=== PATIENT | male | born 1940 | race Caucasian/White ===

== ENCOUNTER 2018-06-16 11:23 | Emergency (ER) | payer MEDICARE, BC ==
[~2018-06-16] VITALS: Ht 185.4 cm; Wt 81.6 kg
[~2018-06-16 11:23] MED LIST changes: -RIVA15TA PO
[2018-06-16 12:50] LABS: BASO # 0.1 x10^3/uL (0.0-0.2); BASO % 1 % (0-3); EOS # 0.4 x10^3/uL (0.0-0.7); EOS % 5 % (0-3); HEMATOCRIT 28.9 % (39.0-53.0); HEMOGLOBIN 10.1 g/dL (13.0-17.5); LYMPH # 2.1 x10^3/uL (1.0-4.8); LYMPH % 24 % (24-48); MEAN CORPUSCULAR HEMOGLOBIN 35 pg (25-35); MEAN CORPUSCULAR HGB CONC 35 g/dL (31-37); MEAN CORPUSCULAR VOLUME 102 fL (79-100); MONO # 0.5 x10^3/uL (0.0-1.1); MONO % 6 % (0-9); NEUT # 5.5 x10^3uL (1.8-7.7); NEUT % 64 % (31-73); PLATELET COUNT 118 x10^3/uL (140-400); RED BLOOD COUNT 2.85 x10^6/uL (4.30-5.70); RED CELL DISTRIBUTION WIDTH 19.5 % (11.5-14.5); WHITE BLOOD COUNT 8.6 x10^3/uL (4.0-11.0)
--- NOTE | 2018-06-16 13:02 | PHYS DOC ---
Past Medical History Past Medical History: Cancer, Diabetes-Type II Past Surgical History: No Surgical History Alcohol Use: None Drug Use: None Adult General Chief Complaint Chief Complaint: LOWER EXTREMITY SWELLING HPI HPI Patient is a 77 year old male with a history of diabetes type 2, stomach cancer , who presents today stating he was diagnosed with a DVT a couple minutes ago. Patient states he noted increased swelling to his right lower extremity for a couple days, he states he called his oncologist, he states they sent him to have an ultrasound today, he states after the ultrasound he was informed he has a blood clot in the right lower extremity and was sent to the ED. Patient denies any chest pain or shortness of breath, denies any recent hospitalization , denies any recent surgical procedures, denies any present for denies any fever , denies any recent long air travel. He states his last chemotherapy treatment was last week. Review of Systems Review of Systems Constitutional: Denies fever or chills [] Eyes: Denies change in visual acuity, redness, or eye pain [] HENT: Denies nasal congestion or sore throat [] Respiratory: Denies cough or shortness of breath [] Cardiovascular: No additional information not addressed in HPI [] GI: Denies abdominal pain, nausea, vomiting, bloody stools or diarrhea [] : Denies dysuria or hematuria [] Musculoskeletal: DVT right lower extremity. Integument: Denies rash or skin lesions [] Neurologic: Denies headache, focal weakness or sensory changes [] All other systems were reviewed and found to be within normal limits, except as documented in this note. Current Medications Current Medications Current Medications Medications (Trade) Dose Ordered Sig/[facility] Start Time Stop Time Status Last Admin Dose Admin Enoxaparin Sodium (Lovenox 80mg Syringe) 80 mg Q12HR 06/16/18 13:30 Enoxaparin Sodium (Lovenox Per Pharmacy Treatment Dosing) 1 each PRN DAILY PRN 06/16/18 13:30 Allergies Allergies Allergies Coded Allergies Type Severity Reaction Last Updated Verified No Known Drug Allergies 11/09/17 No Physical Exam Physical Exam Constitutional: Well developed, well nourished, no acute distress, non-toxic appearance. [] HENT: Normocephalic, atraumatic, bilateral external ears normal, oropharynx moist, no oral exudates, nose normal. [] Eyes: PERRLA, EOMI, conjunctiva normal, no discharge. [] Neck: Normal range of motion, no tenderness, supple, no stridor. [] Cardiovascular:Heart rate regular rhythm, no murmur [] Lungs & Thorax: Bilateral breath sounds clear to auscultation [] Abdomen: Bowel sounds normal, soft, no tenderness, no masses, no pulsatile masses. [] Skin: Warm, dry, no erythema, no rash. [] Back: No tenderness, no CVA tenderness. [] Extremities: Right lower extremity around the Calf appears bigger than the left lower extremity. There is trace redness over the chin. Positive Homans sign to the right lower extremity. +2 right pedal pulse. Full range of motion to the right lower extremity. Sensation intact to the right lower extremity. Neurologic: Alert and oriented X 3, normal motor function, normal sensory function, no focal deficits noted. [] Psychologic: Affect normal, judgement normal, mood normal. [] Current Patient Data Vital Signs Vital Signs Date Time Temp Pulse Resp B/P (MAP) Pulse Ox O2 Delivery O2 Flow Rate FiO2 06/16/18 12:26 98.1 73 16 177/77 (110) 99 Room Air 99.0 98.1 Lab Values Laboratory Tests Test 06/16/18 12:42 White Blood Count 8.6 x10^3/uL (4.0-11.0) Red Blood Count 2.85 x10^6/uL (4.30-5.70) L Hemoglobin 10.1 g/dL (13.0-17.5) L Hematocrit 28.9 % (39.0-53.0) L Mean Corpuscular Volume 102 fL (79-100) H Mean Corpuscular Hemoglobin 35 pg (25-35) Mean Corpuscular Hemoglobin Concent 35 g/dL (31-37) Red Cell Distribution Width 19.5 % (11.5-14.5) H Platelet Count 118 x10^3/uL (140-400) L Neutrophils (%) (Auto) 64 % (31-73) Lymphocytes (%) (Auto) 24 % (24-48) Monocytes (%) (Auto) 6 % (0-9) Eosinophils (%) (Auto) 5 % (0-3) H Basophils (%) (Auto) 1 % (0-3) Neutrophils # (Auto) 5.5 x10^3uL (1.8-7.7) Lymphocytes # (Auto) 2.1 x10^3/uL (1.0-4.8) Monocytes # (Auto) 0.5 x10^3/uL (0.0-1.1) Eosinophils # (Auto) 0.4 x10^3/uL (0.0-0.7) Basophils # (Auto) 0.1 x10^3/uL (0.0-0.2) Sodium Level 138 mmol/L (136-145) Potassium Level 4.2 mmol/L (3.5-5.1) Chloride Level 101 mmol/L (98-107) Carbon Dioxide Level 25 mmol/L (21-32) Anion Gap 12 (6-14) Blood Urea Nitrogen 26 mg/dL (8-26) Creatinine 0.9 mg/dL (0.7-1.3) Estimated GFR (Cockcroft-Gault) 82.0 Glucose Level 138 mg/dL (70-99) H Calcium Level 9.2 mg/dL (8.5-10.1) C-Reactive Protein, Quantitative 9.9 mg/L (0-3.3) H Laboratory Tests 06/16/18 12:42 Laboratory Tests 06/16/18 12:42 EKG EKG [] Radiology/Procedures Radiology/Procedures []PROCEDURE: VENOUS LOWER EXTREMITY RIGHT Right lower extremity venous doppler ultrasound History: Right leg swelling, on chemotherapy Comparison: None Findings: Multiple grayscale, color, and duplex spectral analysis sonographic images were acquired of the right lower extremity veins to evaluate for the presence of DVT. There is abnormal internal echogenicity extending from the right common femoral vein to the level of the calf veins, some color flow present. Greater saphenous vein is patent. Impression: 1. There is nonocclusive thrombus extending from the common femoral to the calf veins. Attempts were made to contact nurse for the ordering physician unsuccessfully, critical results to be called by the technologist to the office of ordering physician. Electronically signed by: Slava Jackson MD (06/16/2018 11:07 AM) [id number] DICTATED and SIGNED BY: SLAVA JACKSON MD DATE: 06/16/18 1040 Course & Med Decision Making Course & Med Decision Making Pertinent Labs and Imaging studies reviewed. (See chart for details) This is a 77-year-old male patient with history of stomach cancer currently on chemotherapy who presents today stating he was diagnosed with a DVT a few minutes ago. He states he has had right lower extremity swelling for couple days. No known injury. Outpatient venous Doppler interpreted by radiologist was noted for a nonocclusive thrombus extending from common femoral to the calf veins. CBC no acute findings, BMP with normal renal function. Patient is given Lovenox IM in the ED. Patient was discharged with Xaleto two week dose provided. Instructed to follow up with the PCP for more medication to cover three weeks. Dr. Chris was consulted with this case. Dragon Disclaimer Dragon Disclaimer This electronic medical record was generated, in whole or in part, using a voice recognition dictation system. Departure Departure Impression: Primary Impression: Right leg DVT Disposition: 01 HOME, SELF-CARE Condition: STABLE Referrals: FELICE GRECO Jr, MD (PCP) Call his office today and set up a follow-up appointment Patient Instructions: Deep Vein Thrombosis Additional Instructions: You have a blood clot in the right lower extremity. We put you on a blood thinner. Please contact your primary care doctor today and set up an appointment to follow-up so that they can give you more medication. Please come back to the emergency room at any point you have worsening symptoms including but not limited to chest pain/shortness of breath. Scripts Rivaroxaban (XARELTO) 15 Mg Tablet 15 MG PO BID, #28 TAB Prov: TRAVIS GAMBLE APRN 06/16/18 Problem Qualifiers Primary Impression: Right leg DVT Affected thrombotic vein of extremity: femoral Chronicity: acute Qualified Codes: I82.411 - Acute embolism and thrombosis of right femoral vein TRAVIS GAMBLE APRN Jun 16, 2018 13:02
[2018-06-16 13:04] LABS: CALCIUM 9.2 mg/dL (8.5-10.1); CREATININE 0.9 mg/dL (0.7-1.3); POTASSIUM 4.2 mmol/L (3.5-5.1)
[2018-06-16 13:07] LABS: C-REACTIVE PROTEIN 9.9 mg/L (0-3.3)
[2018-06-16 13:41] VITALS: BP 152/67
[2018-06-16] MEDS ORDERED: RIVA15TA PO (13:51)
== END 2018-06-16 14:10 | disposition home or self-care (01) ==
LOC: ER 11:23
DX: I82.411 Acute embolism and thrombosis of right femoral vein (principal); E11.9 Type 2 diabetes mellitus without complications; Z85.028 Personal history of other malignant neoplasm of stomach; Z51.11 Encounter for antineoplastic chemotherapy
CPT/HCPCS: 36415; 80048; 85025; 85651; 86140; 96372; 99285; J1650; 99284

== ENCOUNTER → 2018-06-16 | Outpatient (CLI) | payer MEDICARE, BC ==
[~2018-06-16] MED LIST: CRESTOR5 MG PO; METF500T16 PO; OMEP20TA63 PO; RANI300T3 PO; RIVA15TA PO
--- NOTE | 2018-06-16 11:10 | RAD ---
Right lower extremity venous doppler ultrasound History: Right leg swelling, on chemotherapy Comparison: None Findings: Multiple grayscale, color, and duplex spectral analysis sonographic images were acquired of the right lower extremity veins to evaluate for the presence of DVT. There is abnormal internal echogenicity extending from the right common femoral vein to the level of the calf veins, some color flow present. Greater saphenous vein is patent. Impression: 1. There is nonocclusive thrombus extending from the common femoral to the calf veins. Attempts were made to contact nurse for the ordering physician unsuccessfully, critical results to be called by the technologist to the office of ordering physician. Electronically signed by: Evangelista Arellano MD (06/16/2018 11:07 AM) [email or web address]
== END | disposition home or self-care (01) ==
LOC: US 09:08
PROVIDERS: ATTEND Internal Medicine Hematology & Oncology
DX: I82.890 Acute embolism and thrombosis of other specified veins (principal); E11.9 Type 2 diabetes mellitus without complications; E78.5 Hyperlipidemia, unspecified; Z85.01 Personal history of malignant neoplasm of esophagus
CPT/HCPCS: 93971

== ENCOUNTER 2019-07-05 20:44 | Inpatient (IN) | payer MEDICARE, BC ==
[~2019-07-05] VITALS: Ht 185.4 cm; Wt 91.6 kg
[~2019-07-05 20:44] MED LIST changes: +RIVA15TA PO
[2019-07-05 23:15] VITALS: BP 124/81
[2019-07-05 23:30] VITALS: BP 66/49
--- NOTE | 2019-07-05 23:30 | NUR ---
Patient arrived to ICU room 105 from [facility] via EMS. Patient arrived alert and oriented, answers questions appropriately. No IVFs and on room air. Denies pain but reports dizziness. Unsteady and difficulty urinating. Fell back to the bed and reported increased dizziness. Family at bedside. No orders in place. Will continue to monitor.
[2019-07-05 23:45] VITALS: BP 90/51
[2019-07-05] MEDS: PANTOPRAZOLE SODIUM IV DRIP 80 MG in IV NORMAL SALINE 100ML 100 ML IV SCH (23:54)
--- NOTE | 2019-07-05 23:59 | NUR ---
Patient had nausea and dark red emesis. Dr. Perez paged but no call back. Dr. Barajas notified orders received for protonix and consult to Dr. Antunez. Dr. Michael with call back and advised to hold xerelto and Dr. Antunez will be in to see patient in the am. Will continiue to monitor.
[2019-07-06] VITALS (45 sets, daily range): BP systolic 61–140; BP diastolic 34–81
[2019-07-06 00:29] LABS: BASO # 0.1 x10^3/uL (0.0-0.2); BASO % 0 % (0-3); EOS % 0 % (0-3); HEMATOCRIT 23.5 % (39.0-53.0); HEMOGLOBIN 7.8 g/dL (13.0-17.5); LYMPH % 22 % (24-48); MEAN CORPUSCULAR HEMOGLOBIN 33 pg (25-35); MEAN CORPUSCULAR HGB CONC 33 g/dL (31-37); MEAN CORPUSCULAR VOLUME 99 fL (79-100); MONO # 1.8 x10^3/uL (0.0-1.1); MONO % 10 % (0-9); NEUT # 12.3 x10^3/uL (1.8-7.7); NEUT % 68 % (31-73); PLATELET COUNT 135 x10^3/uL (140-400); RED BLOOD COUNT 2.39 x10^6/uL (4.30-5.70); WHITE BLOOD COUNT 18.1 x10^3/uL (4.0-11.0)
[2019-07-06 00:41] LABS: ALBUMIN 2.4 g/dL (3.4-5.0); ALBUMIN/GLOBULIN RATIO 1.1 (1.0-1.7); CALCIUM 7.9 mg/dL (8.5-10.1); CREATININE 1.4 mg/dL (0.7-1.3); GFR 49.1; POTASSIUM 4.5 mmol/L (3.5-5.1); TOTAL BILIRUBIN 0.7 mg/dL (0.2-1.0); TOTAL PROTEIN 4.6 g/dL (6.4-8.2)
[2019-07-06] MEDS ORDERED: fentaNYL PF VIAL 100 MCG/2 ML VIAL IVP PRN (01:00)
--- NOTE | 2019-07-06 01:00 | NUR ---
Dr. Chavira called due to no call back from [facility]. Update of patient condition. Notified of labs. Admit orders received. Patient began to be more restless and increased WOB. Spoke with family and advised of patient more unstable at this point. Patient's family states he had a DNR in place but is a full code at this time. RT called for blood gases. Patient restless with increased WOB, skin cool, hilliard and clammy. While attempting to reposition patient, agonal respirations. Attempting to BVM but difficult due to patient restlessness. Code Blue respiratory called.
[2019-07-06] MEDS ORDERED: MIDAZOLAM HCL/PF 5 MG/5 ML VIAL. ONE (01:19)
[2019-07-06] MEDS ORDERED: ETOMIDATE 20 MG/10 ML VIAL. IV ONE (01:19)
[2019-07-06] MEDS ORDERED: VECURONIUM BOLUS 10 MG VIAL. IV ONE (01:19)
[2019-07-06 01:33] LABS: BASE EXCESS ABG -29 mmol/L (-3-3); HCO3 ABG 6 mmol/L (21-28); PCO2 ABG 51 mmHg (35-46); PO2 ABG 290 mmHg (65-108); SAT O2 ABG 99 % (92-99)
[2019-07-06 01:44] LABS: BASE EXCESS ABG -27 mmol/L (-3-3); HCO3 ABG 6 mmol/L (21-28); PCO2 ABG 46 mmHg (35-46); PO2 ABG 316 mmHg (65-108); SAT O2 ABG 99 % (92-99)
[2019-07-06 01:51] LABS: RED BLOOD COUNT 1.88 x10^6/uL (4.30-5.70); RED CELL DISTRIBUTION WIDTH 18.1 % (11.5-14.5); WHITE BLOOD COUNT 20.5 x10^3/uL (4.0-11.0)
[2019-07-06 01:59] LABS: HEMATOCRIT 19.6 % (39.0-53.0); HEMOGLOBIN 6.2 g/dL (13.0-17.5)
--- NOTE | 2019-07-06 02:00 | NUR ---
Patient intubated. Blood gases critical and called to Dr. Bolaños. Orders received along with vent changes. Will continue to monitor.
[2019-07-06 02:13] LABS: FIO2 ABG 100
[2019-07-06 02:14] LABS: FIO2 ABG 100
[2019-07-06] MEDS: SODIUM BICARBONATE VIAL 100 MEQ in IV DEXTROSE 5% 1,000 ML IV SCH ×2 (02:22→17:55)
[2019-07-06] MEDS ORDERED: SODIUM BICARB ADULT 8.4% 50 MEQ/50 ML DISP.SYRIN. IV ONE (02:30)
[2019-07-06] MEDS: MIDAZOLAM 100mg/100ml NS BAG 100 ML IV PRN ×2 (02:37→15:06)
--- NOTE | 2019-07-06 02:52 | RAD ---
Study: 1. PORTABLE CHEST 1V 2. KUB Indication: Support device placement Comparison: Chest radiograph 07/05/2019 at 1759 hours. Findings: Endotracheal tube placement with the tip terminating just above the level of the clavicles at approximately 7 cm from the brigid. Enteric tube tip and sidehole are within the stomach. Unchanged positioning of a left chest wall Port-A-Cath. Slight progression of basilar volume loss, particularly on the left. No pneumothorax. Biapical scarring. The stomach is distended. No free air seen under the diaphragm. Impression: 1. Endotracheal tube is in place with the tip terminating just above the level of the clavicles and approximately 7 cm above the brigid. 2. Enteric tube tip and sidehole are within the stomach. 3. No newly seen acute abnormality of the chest. There has been some progression of mild basilar volume loss, particularly on the left. 4. No free air seen under the diaphragm. Gastric distention noted. Electronically signed by: LISA WHITE MD (07/06/2019 2:49 AM) [facility]
[2019-07-06] MEDS ORDERED: PHENYLEPHRINE INJ 20 MG in IV NORMAL SALINE 250ML 250 ML IV PRN (03:15)
[2019-07-06 05:17] LABS: % BANDS 28 % (0-9); % LYMPHS 21 % (24-48); % MONOS 10 % (0-10); % MYELOS 1 % (0-0); % SEGS 40 % (35-66); PLT ESTIMATE DECREASED (ADEQUATE)
[2019-07-06 05:18] LABS: POLYCHROMASIA SLIGHT; TOXIC GRANULATION SLIGHT
[2019-07-06] MEDS: NOREPINEPHRIN 8MG/250ML PREMIX 250 ML IV PRN ×2 (05:35→09:08)
[2019-07-06] MEDS ORDERED: RIVA20TA2 PO (07:41)
[2019-07-06 07:50] LABS: BASO # 0.1 x10^3/uL (0.0-0.2); BASO % 1 % (0-3); EOS % 0 % (0-3); HEMATOCRIT 31.1 % (39.0-53.0); LYMPH # 1.5 x10^3/uL (1.0-4.8); LYMPH % 10 % (24-48); MEAN CORPUSCULAR HEMOGLOBIN 32 pg (25-35); MEAN CORPUSCULAR HGB CONC 34 g/dL (31-37); MONO # 0.5 x10^3/uL (0.0-1.1); MONO % 3 % (0-9); NEUT # 12.8 x10^3/uL (1.8-7.7); NEUT % 86 % (31-73); PLATELET COUNT 116 x10^3/uL (140-400); RED BLOOD COUNT 3.37 x10^6/uL (4.30-5.70); RED CELL DISTRIBUTION WIDTH 18.2 % (11.5-14.5); WHITE BLOOD COUNT 14.9 x10^3/uL (4.0-11.0)
[2019-07-06 07:56] LABS: HEMOGLOBIN 10.6 g/dL (13.0-17.5); MEAN CORPUSCULAR VOLUME 92 fL (79-100)
[2019-07-06 08:00] LABS: CALCIUM 7.4 mg/dL (8.5-10.1); CREATININE 1.8 mg/dL (0.7-1.3); GFR 36.8; POTASSIUM 4.1 mmol/L (3.5-5.1)
[2019-07-06 08:16] LABS: BASE EXCESS ABG -11 mmol/L (-3-3); HCO3 ABG 13 mmol/L (21-28); PCO2 ABG 24 mmHg (35-46); PO2 ABG 198 mmHg (65-108); SAT O2 ABG 99 % (92-99)
[2019-07-06 08:18] LABS: FIO2 ABG 100
[2019-07-06] MEDS: PANTOPRAZOLE SODIUM IV DRIP 80 MG in IV NORMAL SALINE 100ML 100 ML IV SCH ×2 (09:07→20:15)
[2019-07-06] MEDS ORDERED: PHYTONADIONE 10 MG/ML AMPUL. SQ ONE (09:30)
--- NOTE | 2019-07-06 10:06 | PDOC2 ---
CONSULT Date of Consult Date of Consult DATE: 07/06/19 TIME: 10:03 Reason for Consult Reason for Consult: Hematemesis/hx adenocarcinoma of cardia/diatal esophagus Current Medications Current Medications Current Medications Pantoprazole Sodium 80 mg/ Sodium Chloride 100 ml @ 10 mls/hr Q10H IV Last administered on 07/06/19at 09:07; Start 07/06/19 at 00:00 Lorazepam (Ativan Inj) 2 mg PRN Q4HRS PRN IVP ANXIETY / AGITATION Last administered on 07/06/19at 00:59; Start 07/06/19 at 01:00 Fentanyl Citrate (Fentanyl 2ml Vial) 50 mcg PRN Q2HR PRN IVP SEVERE PAIN 7-10; Start 07/06/19 at 01:00 Norepinephrine Bitartrate 250 ml @ 16.159 mls/ hr CONT PRN IV SEE I/O RECORD Last administered on 07/06/19at 09:08; Start 07/06/19 at 01:00 Etomidate (Amidate) 20 mg STK-MED ONCE IV ; Start 07/06/19 at 01:19; Stop 07/06/19 at 01:19; Status DC Vecuronium [place] (Norcuron Bolus) 10 mg STK-MED ONCE IV ; Start 07/06/19 at 01:19; Stop 07/06/19 at 01:19; Status DC Midazolam HCl (Versed) 5 mg STK-MED ONCE .ROUTE ; Start 07/06/19 at 01:19; Stop 07/06/19 at 01:19; Status DC Midazolam HCl 100 ml @ 5 mls/hr CONT PRN IV SEE I/O RECORD Last administered on 07/06/19at 02:37; Start 07/06/19 at 01:30 Sodium Bicarbonate (Sodium Bicarb Adult 8.4% Syr) 100 meq 1X ONCE IV Last administered on 07/06/19at 02:22; Start 07/06/19 at 02:30; Stop 07/06/19 at 02:31; Status DC Sodium Bicarbonate 100 meq/Dextrose 1,100 ml @ 75 mls/hr [id number] IV Last administered on 07/06/19at 02:22; Start 07/06/19 at 02:30 Phenylephrine HCl 20 mg/Sodium Chloride 252 ml @ 32.508 mls/ hr CONT PRN IV SEE I/O RECORD Last administered on 07/06/19at 03:30; Start 07/06/19 at 03:15 Phytonadione (Vitamin K Ampule) 10 mg 1X ONCE SQ Last administered on 07/06/19at 09:49; Start 07/06/19 at 09:30; Stop 07/06/19 at 09:31; Status DC Active Scripts Active Reported Xarelto (Rivaroxaban) 20 Mg Tablet 20 Mg PO DAILYWSUP Zantac (Ranitidine Hcl) 300 Mg Tablet 300 Mg PO DAILY Crestor (Rosuvastatin Calcium) 5 Mg Tablet 5 Mg PO HS Metformin Hcl 500 Mg Tablet 500 Mg PO BIDWMEALS Prilosec Otc (Omeprazole Magnesium) 20 Mg Tablet.dr 20 Mg PO DAILY Allergies Allergies: Coded Allergies: No Known Drug Allergies (Unverified , 11/09/17) Vitals VITALS Vital Signs Date Time Temp Pulse Resp B/P (MAP) Pulse Ox O2 Delivery O2 Flow Rate FiO2 07/06/19 09:00 122 30 137/69 (91) 100 Ventilator 07/06/19 08:00 98.4 98.4 07/06/19 01:10 15.0 Labs Labs Laboratory Tests Test 07/06/19 00:15 07/06/19 01:00 07/06/19 01:38 07/06/19 01:45 White Blood Count 18.1 x10^3/uL (4.0-11.0) 20.5 x10^3/uL (4.0-11.0) Red Blood Count 2.39 x10^6/uL (4.30-5.70) 1.88 x10^6/uL (4.30-5.70) Hemoglobin 7.8 g/dL (13.0-17.5) 6.2 g/dL (13.0-17.5) Hematocrit 23.5 % (39.0-53.0) 19.6 % (39.0-53.0) Mean Corpuscular Volume 99 fL (79-100) 104 fL (79-100) Mean Corpuscular Hemoglobin 33 pg (25-35) 33 pg (25-35) Mean Corpuscular Hemoglobin Concent 33 g/dL (31-37) 32 g/dL (31-37) Red Cell Distribution Width 17.0 % (11.5-14.5) 18.1 % (11.5-14.5) Platelet Count 135 x10^3/uL (140-400) 124 x10^3/uL (140-400) Neutrophils (%) (Auto) 68 % (31-73) Lymphocytes (%) (Auto) 22 % (24-48) Monocytes (%) (Auto) 10 % (0-9) Eosinophils (%) (Auto) 0 % (0-3) Basophils (%) (Auto) 0 % (0-3) Neutrophils # (Auto) 12.3 x10^3/uL (1.8-7.7) Lymphocytes # (Auto) 4.0 x10^3/uL (1.0-4.8) Monocytes # (Auto) 1.8 x10^3/uL (0.0-1.1) Eosinophils # (Auto) 0.0 x10^3/uL (0.0-0.7) Basophils # (Auto) 0.1 x10^3/uL (0.0-0.2) Segmented Neutrophils % 40 % (35-66) Band Neutrophils % 28 % (0-9) Lymphocytes % 21 % (24-48) Monocytes % 10 % (0-10) Myelocytes % 1 % (0-0) Toxic Granulation Slight Platelet Estimate Decreased (ADEQUATE) Polychromasia Slight Crenated Cell Present Prothrombin Time 22.0 SEC (11.7-14.0) Prothromb Time International Ratio 2.0 (0.8-1.1) Sodium Level 144 mmol/L (136-145) Potassium Level 4.5 mmol/L (3.5-5.1) Chloride Level 109 mmol/L (98-107) Carbon Dioxide Level 12 mmol/L (21-32) Anion Gap 23 (6-14) Blood Urea Nitrogen 43 mg/dL (8-26) Creatinine 1.4 mg/dL (0.7-1.3) Estimated GFR (Cockcroft-Gault) 49.1 BUN/Creatinine Ratio 31 (6-20) Glucose Level 381 mg/dL (70-99) Calcium Level 7.9 mg/dL (8.5-10.1) Total Bilirubin 0.7 mg/dL (0.2-1.0) Aspartate Amino Transf (AST/SGOT) 15 U/L (15-37) Alanine Aminotransferase (ALT/SGPT) 16 U/L (16-63) Alkaline Phosphatase 112 U/L (46-116) Total Protein 4.6 g/dL (6.4-8.2) Albumin 2.4 g/dL (3.4-5.0) Albumin/Globulin Ratio 1.1 (1.0-1.7) O2 Saturation 99 % (92-99) 99 % (92-99) Arterial Blood pH < 6.72 (7.35-7.45) 6.74 (7.35-7.45) Arterial Blood pCO2 at Patient Temp 51 mmHg (35-46) 46 mmHg (35-46) Arterial Blood pO2 at Patient Temp 290 mmHg (65-108) 316 mmHg (65-108) Arterial Blood HCO3 6 mmol/L (21-28) 6 mmol/L (21-28) Arterial Blood Base Excess -29 mmol/L (-3-3) -27 mmol/L (-3-3) FiO2 100 100 Test 07/06/19 07:35 07/06/19 08:00 White Blood Count 14.9 x10^3/uL (4.0-11.0) Red Blood Count 3.37 x10^6/uL (4.30-5.70) Hemoglobin 10.6 g/dL (13.0-17.5) Hematocrit 31.1 % (39.0-53.0) Mean Corpuscular Volume 92 fL (79-100) Mean Corpuscular Hemoglobin 32 pg (25-35) Mean Corpuscular Hemoglobin Concent 34 g/dL (31-37) Red Cell Distribution Width 18.2 % (11.5-14.5) Platelet Count 116 x10^3/uL (140-400) Neutrophils (%) (Auto) 86 % (31-73) Lymphocytes (%) (Auto) 10 % (24-48) Monocytes (%) (Auto) 3 % (0-9) Eosinophils (%) (Auto) 0 % (0-3) Basophils (%) (Auto) 1 % (0-3) Neutrophils # (Auto) 12.8 x10^3/uL (1.8-7.7) Lymphocytes # (Auto) 1.5 x10^3/uL (1.0-4.8) Monocytes # (Auto) 0.5 x10^3/uL (0.0-1.1) Eosinophils # (Auto) 0.0 x10^3/uL (0.0-0.7) Basophils # (Auto) 0.1 x10^3/uL (0.0-0.2) Sodium Level 145 mmol/L (136-145) Potassium Level 4.1 mmol/L (3.5-5.1) Chloride Level 112 mmol/L (98-107) Carbon Dioxide Level 19 mmol/L (21-32) Anion Gap 14 (6-14) Blood Urea Nitrogen 50 mg/dL (8-26) Creatinine 1.8 mg/dL (0.7-1.3) Estimated GFR (Cockcroft-Gault) 36.8 Glucose Level 356 mg/dL (70-99) Calcium Level 7.4 mg/dL (8.5-10.1) O2 Saturation 99 % (92-99) Arterial Blood pH 7.34 (7.35-7.45) Arterial Blood pCO2 at Patient Temp 24 mmHg (35-46) Arterial Blood pO2 at Patient Temp 198 mmHg (65-108) Arterial Blood HCO3 13 mmol/L (21-28) Arterial Blood Base Excess -11 mmol/L (-3-3) FiO2 100 Laboratory Tests Test 07/06/19 00:15 07/06/19 01:00 07/06/19 01:38 07/06/19 01:45 White Blood Count 18.1 x10^3/uL (4.0-11.0) 20.5 x10^3/uL (4.0-11.0) Red Blood Count 2.39 x10^6/uL (4.30-5.70) 1.88 x10^6/uL (4.30-5.70) Hemoglobin 7.8 g/dL (13.0-17.5) 6.2 g/dL (13.0-17.5) Hematocrit 23.5 % (39.0-53.0) 19.6 % (39.0-53.0) Mean Corpuscular Volume 99 fL (79-100) 104 fL (79-100) Mean Corpuscular Hemoglobin 33 pg (25-35) 33 pg (25-35) Mean Corpuscular Hemoglobin Concent 33 g/dL (31-37) 32 g/dL (31-37) Red Cell Distribution Width 17.0 % (11.5-14.5) 18.1 % (11.5-14.5) Platelet Count 135 x10^3/uL (140-400) 124 x10^3/uL (140-400) Neutrophils (%) (Auto) 68 % (31-73) Lymphocytes (%) (Auto) 22 % (24-48) Monocytes (%) (Auto) 10 % (0-9) Eosinophils (%) (Auto) 0 % (0-3) Basophils (%) (Auto) 0 % (0-3) Neutrophils # (Auto) 12.3 x10^3/uL (1.8-7.7) Lymphocytes # (Auto) 4.0 x10^3/uL (1.0-4.8) Monocytes # (Auto) 1.8 x10^3/uL (0.0-1.1) Eosinophils # (Auto) 0.0 x10^3/uL (0.0-0.7) Basophils # (Auto) 0.1 x10^3/uL (0.0-0.2) Segmented Neutrophils % 40 % (35-66) Band Neutrophils % 28 % (0-9) Lymphocytes % 21 % (24-48) Monocytes % 10 % (0-10) Myelocytes % 1 % (0-0) Toxic Granulation Slight Platelet Estimate Decreased (ADEQUATE) Polychromasia Slight Crenated Cell Present Prothrombin Time 22.0 SEC (11.7-14.0) Prothromb Time International Ratio 2.0 (0.8-1.1) Sodium Level 144 mmol/L (136-145) Potassium Level 4.5 mmol/L (3.5-5.1) Chloride Level 109 mmol/L (98-107) Carbon Dioxide Level 12 mmol/L (21-32) Anion Gap 23 (6-14) Blood Urea Nitrogen 43 mg/dL (8-26) Creatinine 1.4 mg/dL (0.7-1.3) Estimated GFR (Cockcroft-Gault) 49.1 BUN/Creatinine Ratio 31 (6-20) Glucose Level 381 mg/dL (70-99) Calcium Level 7.9 mg/dL (8.5-10.1) Total Bilirubin 0.7 mg/dL (0.2-1.0) Aspartate Amino Transf (AST/SGOT) 15 U/L (15-37) Alanine Aminotransferase (ALT/SGPT) 16 U/L (16-63) Alkaline Phosphatase 112 U/L (46-116) Total Protein 4.6 g/dL (6.4-8.2) Albumin 2.4 g/dL (3.4-5.0) Albumin/Globulin Ratio 1.1 (1.0-1.7) O2 Saturation 99 % (92-99) 99 % (92-99) Arterial Blood pH < 6.72 (7.35-7.45) 6.74 (7.35-7.45) Arterial Blood pCO2 at Patient Temp 51 mmHg (35-46) 46 mmHg (35-46) Arterial Blood pO2 at Patient Temp 290 mmHg (65-108) 316 mmHg (65-108) Arterial Blood HCO3 6 mmol/L (21-28) 6 mmol/L (21-28) Arterial Blood Base Excess -29 mmol/L (-3-3) -27 mmol/L (-3-3) FiO2 100 100 Test 07/06/19 07:35 07/06/19 08:00 White Blood Count 14.9 x10^3/uL (4.0-11.0) Red Blood Count 3.37 x10^6/uL (4.30-5.70) Hemoglobin 10.6 g/dL (13.0-17.5) Hematocrit 31.1 % (39.0-53.0) Mean Corpuscular Volume 92 fL (79-100) Mean Corpuscular Hemoglobin 32 pg (25-35) Mean Corpuscular Hemoglobin Concent 34 g/dL (31-37) Red Cell Distribution Width 18.2 % (11.5-14.5) Platelet Count 116 x10^3/uL (140-400) Neutrophils (%) (Auto) 86 % (31-73) Lymphocytes (%) (Auto) 10 % (24-48) Monocytes (%) (Auto) 3 % (0-9) Eosinophils (%) (Auto) 0 % (0-3) Basophils (%) (Auto) 1 % (0-3) Neutrophils # (Auto) 12.8 x10^3/uL (1.8-7.7) Lymphocytes # (Auto) 1.5 x10^3/uL (1.0-4.8) Monocytes # (Auto) 0.5 x10^3/uL (0.0-1.1) Eosinophils # (Auto) 0.0 x10^3/uL (0.0-0.7) Basophils # (Auto) 0.1 x10^3/uL (0.0-0.2) Sodium Level 145 mmol/L (136-145) Potassium Level 4.1 mmol/L (3.5-5.1) Chloride Level 112 mmol/L (98-107) Carbon Dioxide Level 19 mmol/L (21-32) Anion Gap 14 (6-14) Blood Urea Nitrogen 50 mg/dL (8-26) Creatinine 1.8 mg/dL (0.7-1.3) Estimated GFR (Cockcroft-Gault) 36.8 Glucose Level 356 mg/dL (70-99) Calcium Level 7.4 mg/dL (8.5-10.1) O2 Saturation 99 % (92-99) Arterial Blood pH 7.34 (7.35-7.45) Arterial Blood pCO2 at Patient Temp 24 mmHg (35-46) Arterial Blood pO2 at Patient Temp 198 mmHg (65-108) Arterial Blood HCO3 13 mmol/L (21-28) Arterial Blood Base Excess -11 mmol/L (-3-3) FiO2 100 Assessment/Plan Assessment/Plan Hematemesis- with advanced inoperable adeno-carcinoma. with anticoagulation s/p code Plan supportive therapy with reversal of anticoagulation oncology input regarding any additional palliative therapy as endoscopy with advanced cancer has no role in cessation of the bleeding consider palliative care consult for hospice Full note dictated ALFREDO VIDES MD Jul 06, 2019 10:06
[2019-07-06] MEDS ORDERED: DEXTROSE 50% 25 GM / 50ML DISP.SYRIN. IV PRN (10:45)
[2019-07-06] MEDS: INSULIN LISPRO 300 UNITS/3 ML VIAL. SQ SCH ×2 (11:37→18:02)
--- NOTE | 2019-07-06 11:39 | CONS ---
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 HISTORY OF PRESENT ILLNESS: The patient is a 78-year-old gentleman who presented with cough in 09/2017. He underwent upper endoscopy on 10/24/2017 that revealed malignant appearing lower esophageal stricture and mass. A partially obstructing circumferential ulcerated 5 x 4 cm mass was detected with stigmata of bleeding from the mass. 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 He underwent endoscopic ultrasound on 11/01/2017 that revealed a T3 N2 esophageal cancer. PET scan on 11/07/2017 revealed distal esophageal/GE junction mass with extension to the proximal stomach. He underwent laparoscopy and peritoneal biopsy on 11/28/2017. There was evidence of peritoneal tumor deposits. Biopsies confirmed metastatic adenocarcinoma. He was started on palliative chemotherapy with FOLFOX on 12/07/2017. He developed DVT of the right lower extremity on 06/16/2018 and hence he was started on anticoagulation with Xarelto and he has been on it since then. The patient fell in the hallway at home on 07/05/2019. His heard a big thumb and she found that the patient was on the floor and he had lost consciousness. EMS noted that the patient was repeating himself and was very diaphoretic. He was awake, but not oriented and he was taken to [facility]. He underwent a CT scan of the cervical spine and the head that did not reveal any metastasis or bleeding. He then developed hematemesis and he was transferred to [facility] and intubated. His last dose of Xarelto was on 07/05/2019, morning. He was noted to have severe anemia with a hemoglobin of 6.2 on 07/06/2019 and hemoglobin improved to 10.6 on 07/06/2019 with transfusion. The patient was evaluated by Gastroenterology, Dr. Jacinto Barajas, who recommended supportive care and to consider hospice and management of reversal of anticoagulation. Endoscopy has no role in helping with cessation of bleeding in a patient with advanced gastric cancer, per Dr. Barajas. PAST MEDICAL HISTORY: Arthritis, skin cancer, diabetes, and hypertension. FAMILY HISTORY: Mother had cancer. SOCIAL HISTORY: He is . He quit smoking in 1992. REVIEW OF SYSTEMS: A 12-point review of system was performed. Pertinent positives are mentioned in the history of present illness. Rest of the system review is negative. PHYSICAL EXAMINATION: GENERAL APPEARANCE: The patient is a 78-year-old gentleman who is well developed and nourished and in no acute cardiorespiratory distress. VITAL SIGNS: Blood pressure 115/61, temperature 98.4. HEENT: Atraumatic, normocephalic. EYES: No icterus. NECK: Supple. CHEST: Bilaterally symmetrical. HEART: S1, S2 normal. ABDOMEN: Soft, nontender. No organomegaly. CENTRAL NERVOUS SYSTEM: He is sedated. PSYCHOLOGIC: He is sedated. MUSCULOSKELETAL: No joint effusions. LYMPHATICS: No lymphadenopathy. LABORATORY DATA: On 07/06/2019; hemoglobin 6.2 and post-transfusion hemoglobin is 10.6, platelet count 116, creatinine 1.8 with a BUN of 50. Glucose 381, calcium 7.9, total bilirubin 0.7, alkaline phosphatase 112, total protein 4.6, albumin 2.4. IMPRESSION AND PLAN: 1. 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 HER-2/sue negative, EBV negative, PD-L1 negative, MMR stable. He was started on palliative chemotherapy with FOLFOX on 12/07/2017. He has been actively getting chemotherapy every 2 weeks. He has done well with chemotherapy with reasonably good response. His most recent chemotherapy was on 06/26/2019 which was cycle #33. His most recent PET scan was on 05/03/2019 which revealed mild tumor progression at the gastroesophageal junction. Unchanged mild ill-defined gastrohepatic soft tissue thickening and nodularity along the proximal lesser curvature of the stomach, compatible with tumor infiltration. He is now admitted with GI bleed and respiratory failure. I again explained to the patient and the patient's and daughter that he has stage 4 malignancy, which is not curable. They would like to see how he does and see if he recovers from this GI bleeding event. If he does not recover, then they would like to focus on palliative care only. 2. Gastrointestinal bleed. Appreciate GI consultation. No role for endoscopy in view of malignancy per Dr. Barajas and I agree. Plan FFP 2 units and vitamin K. His last dose of Xarelto was almost 24 hours ago on 07/05/2019. Continue aggressive supportive care. 3. Coagulopathy due to Xarelto. I discussed with registered nurse. Plan 2 units of FFP and vitamin K and monitor hemoglobin closely and transfuse as needed. 4. History of deep venous thrombosis, right lower extremity on 06/16/2018 and he has been on anticoagulation with Xarelto since then. JONATHON ANN MD DR: KRISTIE/nts JOB#: [id number] / [id number]
--- NOTE | 2019-07-06 11:51 | HP ---
ADMIT DATE: CHIEF COMPLAINT: Seizures and GI bleeding, fall with head trauma. HISTORY OF PRESENT ILLNESS: The patient is a pleasant 78-year-old male who has gastric cancer. He presented to [facility] last night with a head injury. He apparently fell. His heard him fall to the ground. She went there and he was unconscious. He was having some possible seizure activity. He presented to the ER at [facility] and then developed some GI bleeding. He has now been transferred to our Intensive Care Unit where again, he has had a seizure. He is also having more GI bleeding. He has an NG in place, which is to suction. He is also on 2 pressors and receiving some fresh frozen plasma. It should be also noted that he is on the ventilator with assist control, rate of 30 respirations, 600 tidal volume, 90% oxygen with 5 of PEEP and he is satting 100% with this. PAST MEDICAL HISTORY: Gastric cancer; chronic anticoagulation, he was on Xarelto; previous GI bleeds; diabetes. ALLERGIES: None. FAMILY HISTORY: Diabetes. SOCIAL HISTORY: He is retired. He does not drink, smoke or take drugs. I believe he lives at home with his . MEDICATIONS: Reviewed, please refer to the MRAD. He is on Xarelto, Crestor, Zantac, Prilosec, and metformin. REVIEW OF SYSTEMS: Unable to obtain. The patient is sedated with Versed on the ventilator. PHYSICAL EXAMINATION: VITALS: Within normal limits and are stable. GENERAL: He is sedated. HEENT: He has an NG to suction with some blood. NECK: Supple, no JVD, no thyromegaly was noted. LUNGS: He is on the vent with assist control of 30, 600, 90% FiO2 and he is satting 100% with that. HEART: RRR, S1, S2 present. Peripheral pulses intact, no obvious murmurs were noted. ABDOMEN: He has a rectal tube drain to a bedside bag. GENITOURINARY: He has a Grace in place. EXTREMITIES: Without any cyanosis, clubbing, or edema. Pedal pulses intact, Homans sign is negative. NEUROLOGIC: He is unresponsive and sedated. PSYCHIATRIC: Normal affect, normal mood. Stable. SKIN: No ulcerations or rashes, good skin turgor, no jaundice. VASCULAR: Good capillary refill, neurovascular bundle appears to be intact. IMAGING: Portable chest x-ray shows the ET tube in place and a NG tube as within the stomach. No free air was noted. Chest x-ray shows an ET tube and NG tube that is in the stomach. No free air. LABORATORY DATA: White count is 15, hemoglobin 10.6 but it was 6.2 last night, platelets 116. INR is 2.0. Electrolytes: Sodium 145, potassium 4.1, chloride 112, bicarbonate 19, BUN 50, creatinine 1.8. ASSESSMENT AND PLAN: Fall with a head injury, seizures and gastrointestinal bleed, acute on chronic renal failure with azotemia, anemia, leukocytosis, hypotension and respiratory failure. The patient is extremely critically ill. We are transfusing fresh frozen plasma and packed red blood cells. He got a dose of vitamin K. We have consulted Neurology and Pulmonary and Oncology and GI. We will also consult Nephrology. We will try to resume his home meds when appropriate, but right now, we are holding his anticoagulation. Full code. Continue to sedate with Versed and we need to wean him off of his pressors. Continue to monitor the rectal bag and the NG for signs of bleeding. Prognosis is extremely guarded at best. TOTAL TIME: 32 minutes. JOSE J HOLMAN DO DR: ANNETTE/nikki JOB#: [id number] / [id number]
--- NOTE | 2019-07-06 11:55 | CONS ---
DATE OF CONSULTATION: GI CONSULTATION REASON FOR CONSULTATION: Acute blood loss anemia with a known esophageal and gastric cardia adenocarcinoma with inoperable. HISTORY OF PRESENT ILLNESS: This is a 78-year-old male with past medical history significant for gastroesophageal reflux disease, adenocarcinoma of the GE junction as well as diabetes, hyperlipidemia, osteoarthrosis, basal cell carcinoma of the left hand, inguinal herniorrhaphy and bunionectomy, status post chemotherapy as well as a family history of gastric cancer with his mother at age 77, was admitted to [facility] with mental status changes after a seizure as well as acute bleeding with drop in hemoglobin down to 6, has been transfused back up-to-date. He did develop respiratory arrest requiring intubation and his anticoagulation has been held and reversed with vitamin K and fresh frozen plasma. Consultation is requested for possible endoscopic intervention. The patient was previously not radiation candidate or surgical candidate and endoscopy in view of a large friable mass on anticoagulation, was not amenable to endoscopic control therapy due to the malignant tissue itself. PAST MEDICAL HISTORY: Diabetes, hypertension, hyperlipidemia, osteoarthrosis, status post herniorrhaphy, status post bunionectomy. ALLERGIES: None. MEDICATIONS: Include Prilosec, metformin, Zantac and Crestor. FAMILY AND SOCIAL HISTORY: Significant for gastric cancer with his mother is . He is otherwise nonsmoker, nondrinker at this time. REVIEW OF SYSTEMS: Per records. PHYSICAL EXAMINATION: GENERAL: Reveals a pale white male who is intubated, unresponsive. VITAL SIGNS: Pulse is 102, respiratory rate is 30, blood pressure is 137/69 and temperature is 98.4. HEENT: Normocephalic, atraumatic head. Pupils and extraocular muscles are not tested. Sclerae anicteric. NECK: Supple. LUNGS: Decreased coarse breath sounds anteriorly. CARDIOVASCULAR: S1, S2 without S3, S4 or appreciable murmur. ABDOMEN: Reveals a soft abdomen, normoactive bowel sounds without appreciable hepatosplenomegaly. EXTREMITIES: Reveals no cyanosis, clubbing or edema. LABORATORY STUDIES: Hemoglobin is 10.6, hematocrit 31.1, white count 14.9 and platelet count is 116,000. Sodium 145, potassium 4.1, chloride 112, bicarbonate 19, BUN 50, creatinine 1.8, glucose is 66, calcium 7.4, total bilirubin 0.7, AST 15, ALT of 18, alkaline phosphatase 112, total bilirubin 4.8 and albumin 2.4. INR is 2.0. IMPRESSION: Acute upper gastrointestinal bleed with known gastroesophageal adenocarcinoma, most likely secondary to recurrent bleeding from the tumor with anticoagulation; therefore, recommend holding anticoagulation, long-term is slightly increased risk of thromboembolism and DVTs with a life threatening bleed. If this does not control the bleeding, then hospice would be recommended as he has not been previously radiation candidate, not been a surgical candidate due to metastatic spread and I doubt an embolization of the area with Interventional Radiology would be successful as well. I would like to thank Dr. Perez for allowing me to consult and participate in the care of this complicated patient. ALFREDO VIDES MD DR: JESICA/nikki JOB#: [id number] / [id number] JONATHON Ely MD, JAY MD TERMULO, CHERRIE MD
--- NOTE | 2019-07-06 13:09 | PDOC ---
PULMONARY PROGRESS NOTES Vitals Vital Signs Date Time Temp Pulse Resp B/P (MAP) Pulse Ox O2 Delivery O2 Flow Rate FiO2 07/06/19 12:30 100.1 112 30 107/53 100.1 07/06/19 12:30 100 Ventilator 07/06/19 01:10 15.0 Labs Laboratory Tests Test 07/06/19 00:15 07/06/19 01:00 07/06/19 01:38 07/06/19 01:45 White Blood Count 18.1 x10^3/uL (4.0-11.0) 20.5 x10^3/uL (4.0-11.0) Red Blood Count 2.39 x10^6/uL (4.30-5.70) 1.88 x10^6/uL (4.30-5.70) Hemoglobin 7.8 g/dL (13.0-17.5) 6.2 g/dL (13.0-17.5) Hematocrit 23.5 % (39.0-53.0) 19.6 % (39.0-53.0) Mean Corpuscular Volume 99 fL (79-100) 104 fL (79-100) Mean Corpuscular Hemoglobin 33 pg (25-35) 33 pg (25-35) Mean Corpuscular Hemoglobin Concent 33 g/dL (31-37) 32 g/dL (31-37) Red Cell Distribution Width 17.0 % (11.5-14.5) 18.1 % (11.5-14.5) Platelet Count 135 x10^3/uL (140-400) 124 x10^3/uL (140-400) Neutrophils (%) (Auto) 68 % (31-73) Lymphocytes (%) (Auto) 22 % (24-48) Monocytes (%) (Auto) 10 % (0-9) Eosinophils (%) (Auto) 0 % (0-3) Basophils (%) (Auto) 0 % (0-3) Neutrophils # (Auto) 12.3 x10^3/uL (1.8-7.7) Lymphocytes # (Auto) 4.0 x10^3/uL (1.0-4.8) Monocytes # (Auto) 1.8 x10^3/uL (0.0-1.1) Eosinophils # (Auto) 0.0 x10^3/uL (0.0-0.7) Basophils # (Auto) 0.1 x10^3/uL (0.0-0.2) Segmented Neutrophils % 40 % (35-66) Band Neutrophils % 28 % (0-9) Lymphocytes % 21 % (24-48) Monocytes % 10 % (0-10) Myelocytes % 1 % (0-0) Toxic Granulation Slight Platelet Estimate Decreased (ADEQUATE) Polychromasia Slight Crenated Cell Present Prothrombin Time 22.0 SEC (11.7-14.0) Prothromb Time International Ratio 2.0 (0.8-1.1) Sodium Level 144 mmol/L (136-145) Potassium Level 4.5 mmol/L (3.5-5.1) Chloride Level 109 mmol/L (98-107) Carbon Dioxide Level 12 mmol/L (21-32) Anion Gap 23 (6-14) Blood Urea Nitrogen 43 mg/dL (8-26) Creatinine 1.4 mg/dL (0.7-1.3) Estimated GFR (Cockcroft-Gault) 49.1 BUN/Creatinine Ratio 31 (6-20) Glucose Level 381 mg/dL (70-99) Calcium Level 7.9 mg/dL (8.5-10.1) Total Bilirubin 0.7 mg/dL (0.2-1.0) Aspartate Amino Transf (AST/SGOT) 15 U/L (15-37) Alanine Aminotransferase (ALT/SGPT) 16 U/L (16-63) Alkaline Phosphatase 112 U/L (46-116) Total Protein 4.6 g/dL (6.4-8.2) Albumin 2.4 g/dL (3.4-5.0) Albumin/Globulin Ratio 1.1 (1.0-1.7) O2 Saturation 99 % (92-99) 99 % (92-99) Arterial Blood pH < 6.72 (7.35-7.45) 6.74 (7.35-7.45) Arterial Blood pCO2 at Patient Temp 51 mmHg (35-46) 46 mmHg (35-46) Arterial Blood pO2 at Patient Temp 290 mmHg (65-108) 316 mmHg (65-108) Arterial Blood HCO3 6 mmol/L (21-28) 6 mmol/L (21-28) Arterial Blood Base Excess -29 mmol/L (-3-3) -27 mmol/L (-3-3) FiO2 100 100 Test 07/06/19 07:35 07/06/19 08:00 White Blood Count 14.9 x10^3/uL (4.0-11.0) Red Blood Count 3.37 x10^6/uL (4.30-5.70) Hemoglobin 10.6 g/dL (13.0-17.5) Hematocrit 31.1 % (39.0-53.0) Mean Corpuscular Volume 92 fL (79-100) Mean Corpuscular Hemoglobin 32 pg (25-35) Mean Corpuscular Hemoglobin Concent 34 g/dL (31-37) Red Cell Distribution Width 18.2 % (11.5-14.5) Platelet Count 116 x10^3/uL (140-400) Neutrophils (%) (Auto) 86 % (31-73) Lymphocytes (%) (Auto) 10 % (24-48) Monocytes (%) (Auto) 3 % (0-9) Eosinophils (%) (Auto) 0 % (0-3) Basophils (%) (Auto) 1 % (0-3) Neutrophils # (Auto) 12.8 x10^3/uL (1.8-7.7) Lymphocytes # (Auto) 1.5 x10^3/uL (1.0-4.8) Monocytes # (Auto) 0.5 x10^3/uL (0.0-1.1) Eosinophils # (Auto) 0.0 x10^3/uL (0.0-0.7) Basophils # (Auto) 0.1 x10^3/uL (0.0-0.2) Sodium Level 145 mmol/L (136-145) Potassium Level 4.1 mmol/L (3.5-5.1) Chloride Level 112 mmol/L (98-107) Carbon Dioxide Level 19 mmol/L (21-32) Anion Gap 14 (6-14) Blood Urea Nitrogen 50 mg/dL (8-26) Creatinine 1.8 mg/dL (0.7-1.3) Estimated GFR (Cockcroft-Gault) 36.8 Glucose Level 356 mg/dL (70-99) Calcium Level 7.4 mg/dL (8.5-10.1) O2 Saturation 99 % (92-99) Arterial Blood pH 7.34 (7.35-7.45) Arterial Blood pCO2 at Patient Temp 24 mmHg (35-46) Arterial Blood pO2 at Patient Temp 198 mmHg (65-108) Arterial Blood HCO3 13 mmol/L (21-28) Arterial Blood Base Excess -11 mmol/L (-3-3) FiO2 100 Laboratory Tests Test 07/06/19 00:15 07/06/19 01:00 07/06/19 01:38 07/06/19 01:45 White Blood Count 18.1 x10^3/uL (4.0-11.0) 20.5 x10^3/uL (4.0-11.0) Red Blood Count 2.39 x10^6/uL (4.30-5.70) 1.88 x10^6/uL (4.30-5.70) Hemoglobin 7.8 g/dL (13.0-17.5) 6.2 g/dL (13.0-17.5) Hematocrit 23.5 % (39.0-53.0) 19.6 % (39.0-53.0) Mean Corpuscular Volume 99 fL (79-100) 104 fL (79-100) Mean Corpuscular Hemoglobin 33 pg (25-35) 33 pg (25-35) Mean Corpuscular Hemoglobin Concent 33 g/dL (31-37) 32 g/dL (31-37) Red Cell Distribution Width 17.0 % (11.5-14.5) 18.1 % (11.5-14.5) Platelet Count 135 x10^3/uL (140-400) 124 x10^3/uL (140-400) Neutrophils (%) (Auto) 68 % (31-73) Lymphocytes (%) (Auto) 22 % (24-48) Monocytes (%) (Auto) 10 % (0-9) Eosinophils (%) (Auto) 0 % (0-3) Basophils (%) (Auto) 0 % (0-3) Neutrophils # (Auto) 12.3 x10^3/uL (1.8-7.7) Lymphocytes # (Auto) 4.0 x10^3/uL (1.0-4.8) Monocytes # (Auto) 1.8 x10^3/uL (0.0-1.1) Eosinophils # (Auto) 0.0 x10^3/uL (0.0-0.7) Basophils # (Auto) 0.1 x10^3/uL (0.0-0.2) Segmented Neutrophils % 40 % (35-66) Band Neutrophils % 28 % (0-9) Lymphocytes % 21 % (24-48) Monocytes % 10 % (0-10) Myelocytes % 1 % (0-0) Toxic Granulation Slight Platelet Estimate Decreased (ADEQUATE) Polychromasia Slight Crenated Cell Present Prothrombin Time 22.0 SEC (11.7-14.0) Prothromb Time International Ratio 2.0 (0.8-1.1) Sodium Level 144 mmol/L (136-145) Potassium Level 4.5 mmol/L (3.5-5.1) Chloride Level 109 mmol/L (98-107) Carbon Dioxide Level 12 mmol/L (21-32) Anion Gap 23 (6-14) Blood Urea Nitrogen 43 mg/dL (8-26) Creatinine 1.4 mg/dL (0.7-1.3) Estimated GFR (Cockcroft-Gault) 49.1 BUN/Creatinine Ratio 31 (6-20) Glucose Level 381 mg/dL (70-99) Calcium Level 7.9 mg/dL (8.5-10.1) Total Bilirubin 0.7 mg/dL (0.2-1.0) Aspartate Amino Transf (AST/SGOT) 15 U/L (15-37) Alanine Aminotransferase (ALT/SGPT) 16 U/L (16-63) Alkaline Phosphatase 112 U/L (46-116) Total Protein 4.6 g/dL (6.4-8.2) Albumin 2.4 g/dL (3.4-5.0) Albumin/Globulin Ratio 1.1 (1.0-1.7) O2 Saturation 99 % (92-99) 99 % (92-99) Arterial Blood pH < 6.72 (7.35-7.45) 6.74 (7.35-7.45) Arterial Blood pCO2 at Patient Temp 51 mmHg (35-46) 46 mmHg (35-46) Arterial Blood pO2 at Patient Temp 290 mmHg (65-108) 316 mmHg (65-108) Arterial Blood HCO3 6 mmol/L (21-28) 6 mmol/L (21-28) Arterial Blood Base Excess -29 mmol/L (-3-3) -27 mmol/L (-3-3) FiO2 100 100 Test 07/06/19 07:35 07/06/19 08:00 White Blood Count 14.9 x10^3/uL (4.0-11.0) Red Blood Count 3.37 x10^6/uL (4.30-5.70) Hemoglobin 10.6 g/dL (13.0-17.5) Hematocrit 31.1 % (39.0-53.0) Mean Corpuscular Volume 92 fL (79-100) Mean Corpuscular Hemoglobin 32 pg (25-35) Mean Corpuscular Hemoglobin Concent 34 g/dL (31-37) Red Cell Distribution Width 18.2 % (11.5-14.5) Platelet Count 116 x10^3/uL (140-400) Neutrophils (%) (Auto) 86 % (31-73) Lymphocytes (%) (Auto) 10 % (24-48) Monocytes (%) (Auto) 3 % (0-9) Eosinophils (%) (Auto) 0 % (0-3) Basophils (%) (Auto) 1 % (0-3) Neutrophils # (Auto) 12.8 x10^3/uL (1.8-7.7) Lymphocytes # (Auto) 1.5 x10^3/uL (1.0-4.8) Monocytes # (Auto) 0.5 x10^3/uL (0.0-1.1) Eosinophils # (Auto) 0.0 x10^3/uL (0.0-0.7) Basophils # (Auto) 0.1 x10^3/uL (0.0-0.2) Sodium Level 145 mmol/L (136-145) Potassium Level 4.1 mmol/L (3.5-5.1) Chloride Level 112 mmol/L (98-107) Carbon Dioxide Level 19 mmol/L (21-32) Anion Gap 14 (6-14) Blood Urea Nitrogen 50 mg/dL (8-26) Creatinine 1.8 mg/dL (0.7-1.3) Estimated GFR (Cockcroft-Gault) 36.8 Glucose Level 356 mg/dL (70-99) Calcium Level 7.4 mg/dL (8.5-10.1) O2 Saturation 99 % (92-99) Arterial Blood pH 7.34 (7.35-7.45) Arterial Blood pCO2 at Patient Temp 24 mmHg (35-46) Arterial Blood pO2 at Patient Temp 198 mmHg (65-108) Arterial Blood HCO3 13 mmol/L (21-28) Arterial Blood Base Excess -11 mmol/L (-3-3) FiO2 100 Medications Active Scripts Medications Dose Route/Sig Max Daily Dose Days Date Category Xarelto (Rivaroxaban) 20 Mg Tablet 20 Mg PO DAILYWSUP 07/06/19 Reported Zantac (Ranitidine Hcl) 300 Mg Tablet 300 Mg PO DAILY 11/09/17 Reported Crestor (Rosuvastatin Calcium) 5 Mg Tablet 5 Mg PO HS 11/09/17 Reported Metformin Hcl 500 Mg Tablet 500 Mg PO BIDWMEALS 11/09/17 Reported Prilosec Otc (Omeprazole Magnesium) 20 Mg Tablet.dr 20 Mg PO DAILY 11/09/17 Reported Impression . FULL NOTE DICTATED ACUTE RESP FAILURE SEC TO HYPOVOLEMIC SHOCK CONTINUE SUPPORT IF NO IMPROVEMENT IN NEXT 24-48 HOURS PT FAMILY CONTEMPLATING D/C SUPPORT AND ALLOW NATURAL PROSPER ELAINE MD Jul 06, 2019 13:09
[2019-07-06] MEDS ORDERED: PIP/TAZO PER PHARMACY MC PRN (13:15)
--- NOTE | 2019-07-06 14:02 | CONS ---
DATE OF CONSULTATION: 07/06/2019 ATTENDING PHYSICIAN: Urbano Chavira MD REASON FOR CONSULTATION: The patient seen in pulmonary consultation at the request of Dr. Chavira for vent management. HISTORY OF PRESENT ILLNESS: The patient is a 78-year-old with stage 4 poorly differentiated carcinoma of the stomach diagnosed in 10/24/2017, underwent chemotherapy. The patient presented with falling at home. His heard a big thumb, found the patient on the floor. EMS was summoned. He was diaphoretic, but was awake. He was transferred to [facility], underwent a CT cervical spine of the head, did not reveal any metastatic bleeding. He then developed hematemesis. He was transferred to [facility] and intubated. The patient had an active GI bleed. His hemoglobin was 6.2 on 07/06. He was transfused last evening. I was called on multiple occasions with the patient's respiratory status and arterial blood gas. He was intubated. Initial arterial blood gas revealed a pH of 6.72, PaCO2 of 51, pO2 of 290, bicarbonate was 6. I gave the patient IV bicarbonate. He was started on a bicarbonate drip. Ventilation was increased this morning, arterial blood gas revealed a pH of 7.34, PaCO2 of 24, pO2 of 198. The patient is on multiple pressors along with IV sodium bicarbonate. His hemoglobin has increased to 10.6 from 6.2. He has been seen by sight effects specialist, Dr. Barajas, who recommended supportive care. The family is at the bedside at this time. No further additional information was obtained. PAST MEDICAL HISTORY: Remarkable for: 1. Stage IV poorly differentiated carcinoma diagnosed in 10/23/2007, recent PET scanning revealing progression of disease. 2. Arthritis. 3. Skin cancer. 4. Diabetes. 5. Hypertension. SOCIAL HISTORY: He is . Quit tobacco in 1992. REVIEW OF SYSTEMS: Unobtainable secondary to the patient's condition. ALLERGIES: No known drug allergies. FAMILY HISTORY: Unknown. PHYSICAL EXAMINATION: GENERAL: The patient was intubated and sedated on multiple pressors. Hemodynamically, he is currently stable. VITAL SIGNS: Heart rate is elevated Temperature is elevated. HEENT: Eyes; the sclerae were nonicteric. NECK: Jugular venous distention was not elevated. No lymphadenopathy. CHEST: Full expansion. LUNGS: Poor airway flow with no wheezes. CARDIOVASCULAR: Regular rate and rhythm with S1, S2, no S3. ABDOMEN: Soft, nondistended. EXTREMITIES: No clubbing, cyanosis. Minimal edema. NEUROLOGIC: The patient was sedated. LABORATORY DATA: As indicated above, the arterial blood gas was reviewed. Repeat INR was 2.0. Electrolytes were noted. BUN and creatinine were elevated. Chest x-ray revealed mild left lower lobe infiltrate. IMPRESSION: 1. Acute respiratory failure. 2. Severe metabolic acidosis. 3. Hypovolemic shock. 4. Severe metabolic acidosis, suspect secondary to hypovolemic shock. 5. 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 6. Acute blood loss anemia. 7. Coagulopathy. 8. History of deep venous thrombosis. 9. Bilateral basilar infiltrates volume loss. 10. History of tobacco dependence. PLAN: 1. Continue current support. 2. The patient currently on 90% FiO2, obviously not ready for weaning. 3. Maintain pressors for mean arterial pressure above 60. 4. Initiate empiric antibiotics for fever. 5. DVT and GI prophylaxis. 6. Follow Dr. Antunez's input. I had a discussion with the family, I recommend continuing aggressive support for the next 24-48 hours. If no marked improvement, I recommend discontinuing mechanical support and allowing natural . I do appreciate the privilege in sharing in the patient's care. PROSPER ELAINE MD DR: SUPRIYA/nikki JOB#: [id number] / [id number]
[2019-07-06] MEDS: PIPERACILLIN/TAZOBACTAM 3.375 GM in IV NORMAL SALINE 50ML 50 ML IV SCH ×2 (14:48→18:01)
--- NOTE | 2019-07-06 16:25 | PDOC2 ---
NEUROLOGY CONSULT Date of Admission Date of Admission DATE: 07/06/19 TIME: 15:49 Reason for Consult Reason for Consult: IMPRESSION: Seizure or seizure like episodes x 3, new onset or provoked. Metabolic encephalopathy. Respiratory failure. 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 Hyperglycemia. GI bleeding Hx. DM. HTN. HLD. Diabetic neuropathy. RECOMMENDATIONS/PLAN: Life support in ICU at the present time. Keppra 500 mg IV Q12h. Brain LUANNE w/wo contrast when stable. If creatinine is still high after hydration, no contrast. Control hyperglycemia. EEG as needed. Please consult Oncology. Treat medical diseases. Discussed with his , son and daughter in detail at bedside in ICU on 07/06/19. 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 He was administrated with Keppra after calling Neurology and was eventually transferred to [facility] for further evaluation and treatment. PAST MEDICAL HISTORY: Diabetes, hypertension, hyperlipidemia, osteoarthrosis, status post herniorrhaphy, status post bunionectomy. PAST SURGERY HISTORY: No major surgery recently. FAMILY AND SOCIAL HISTORY: Gastric cancer in his mother who . ALLERGY: Unknown MEDICATIONS: Refer to [facility] SOCIAL HISTORY: Lives at home. Denies current smoking, drinking, and illicit drug use. He quit smoking and drinking in . REVIEW OF SYSTEMS: Constitutional: No malnutrition, or cachexia. Head: No traumatic brain or head injury. Skin: No edema, or rash. Ear: No infection. Eyes: No vision loss or color blindness. Nose: No bleeding or purulent discharges. Hearing: Hearing decrease. Neck: No injury. Cardiac: HTN, HLD. Pulmonary: No COPD. GI: GI cancer. Urinary/genital: No dysuria, urinary retention. Endocrinologic: Diabetes Mellitus. Skeletomuscular: Generalized weakness. Neurological: see HP. Psychiatric: Denies drug use/abuse. Otherwise, not [id number] review of systems. PHYSICAL EXAMINATION: General appearance is in acute distress. HEENT: Normocephalic and nontraumatic. Eyes, nose, ears, and throat are unremarkable. Neck is supple. No lymphadenopathy. No crepitus. Cardiovascular: S1, S2, regular rate and rhythm. Pulmonary: On vent. Abdomen: Bowel sounds are positive. Extremities: No rash, lesions, or edema. No restriction of range of motion NEUROLOGICAL EXAMINATION: Unresponsive. On vent. Not oriented to time, place and person. PERRL. EOMI not elicited. CN: no focal findings. Muscle tone: Decreased. Muscle strength: No movements to stimuli under sedation. DTR: 1 Plantar reflex: Neutral response bilaterally Gait: Unable to walk at this time. Sensory exam: no response to stimuli. Not able to access cerebellar signs. F-T-N test not performed due to unresponsiveness. Current Medications Current Medications Current Medications Pantoprazole Sodium 80 mg/ Sodium Chloride 100 ml @ 10 mls/hr Q10H IV Last administered on 07/06/19at 09:07; Start 07/06/19 at 00:00 Lorazepam (Ativan Inj) 2 mg PRN Q4HRS PRN IVP ANXIETY / AGITATION Last administered on 07/06/19at 00:59; Start 07/06/19 at 01:00 Fentanyl Citrate (Fentanyl 2ml Vial) 50 mcg PRN Q2HR PRN IVP SEVERE PAIN 7-10; Start 07/06/19 at 01:00 Norepinephrine Bitartrate 250 ml @ 16.159 mls/ hr CONT PRN IV SEE I/O RECORD Last administered on 07/06/19at 09:08; Start 07/06/19 at 01:00 Etomidate (Amidate) 20 mg STK-MED ONCE IV ; Start 07/06/19 at 01:19; Stop 07/06/19 at 01:19; Status DC Vecuronium [place] (Norcuron Bolus) 10 mg STK-MED ONCE IV ; Start 07/06/19 at 01:19; Stop 07/06/19 at 01:19; Status DC Midazolam HCl (Versed) 5 mg STK-MED ONCE .ROUTE ; Start 07/06/19 at 01:19; St op 07/06/19 at 01:19; Status DC Midazolam HCl 100 ml @ 5 mls/hr CONT PRN IV SEE I/O RECORD Last administered on 07/06/19at 15:06; Start 07/06/19 at 01:30 Sodium Bicarbonate (Sodium Bicarb Adult 8.4% Syr) 100 meq 1X ONCE IV Last administered on 07/06/19at 02:22; Start 07/06/19 at 02:30; Stop 07/06/19 at 02:31; Status DC Sodium Bicarbonate 100 meq/Dextrose 1,100 ml @ 75 mls/hr [id number] IV Last administered on 07/06/19at 02:22; Start 07/06/19 at 02:30 Phenylephrine HCl 20 mg/Sodium Chloride 252 ml @ 32.508 mls/ hr CONT PRN IV SEE I/O RECORD Last administered on 07/06/19at 03:30; Start 07/06/19 at 03:15 Phytonadione (Vitamin K Ampule) 10 mg 1X ONCE SQ Last administered on 07/06/19at 09:49; Start 07/06/19 at 09:30; Stop 07/06/19 at 09:31; Status DC Dextrose (Dextrose 50%-Water Syringe) 12.5 gm PRN Q15MIN PRN IV SEE COMMENTS; Start 07/06/19 at 10:45 Insulin Human Lispro (HumaLOG) 0-7 UNITS Q6HRS SQ Last administered on 07/06/19at 11:37; Start 07/06/19 at 12:00 Piperacillin Sod/ Tazobactam Sod (Zosyn Per Pharmacy) 1 each PRN DAILY PRN MC SEE COMMENTS; Start 07/06/19 at 13:15 Piperacillin Sod/ Tazobactam Sod 3.375 gm/Sodium Chloride 50 ml @ 100 mls/hr Q6HRS IV Last administered on 07/06/19at 14:48; Start 07/06/19 at 14:00 Active Scripts Active Reported Xarelto (Rivaroxaban) 20 Mg Tablet 20 Mg PO DAILYWSUP Zantac (Ranitidine Hcl) 300 Mg Tablet 300 Mg PO DAILY Crestor (Rosuvastatin Calcium) 5 Mg Tablet 5 Mg PO HS Metformin Hcl 500 Mg Tablet 500 Mg PO BIDWMEALS Prilosec Otc (Omeprazole Magnesium) 20 Mg Tablet.dr 20 Mg PO DAILY Allergies Allergies: Allergies Coded Allergies Type Severity Reaction Last Updated Verified No Known Drug Allergies 11/09/17 No ROS Review of System The patient denies any associated fevers, chills, headache, ear pain, rhinorrhea, sore throat, stiff neck, productive cough, chest pain, shortness of breath, back or flank pain, abdominal pain, nausea, vomiting, diarrhea, constipation, dysuria, rash, numbness, weakness, tingling, incontinence, difficulty ambulating, or diaphoresis. Physical Exam Physical Exam General: Well developed, well nourished, no acute distress, well appearing HEENT: Pupils equally round and reactive to light, EOMI, no discharge, normal conjunctiva Neck: Supple, no nuchal rigidity, no JVD, trachea midline, no tenderness Cardiac: RRR, no murmurs, no gallops, no rubs Chest/Lungs: CTAB, no wheeze, no rhonchi, no crackles Abdomen: soft, non-distended, no guarding, no peritoneal signs, non-tender Back: No tenderness Extremities: no edema, pulses intact, non-tender,capillary refill <3 sec bilateral upper and lower extremities, Neuro: Alert and oriented x 4, no focal deficits, normal speech Vitals Vitals: Vital Signs Date Time Temp Pulse Resp B/P (MAP) Pulse Ox O2 Delivery O2 Flow Rate FiO2 07/06/19 15:20 100 Ventilator 07/06/19 15:00 129 30 92/52 (65) 07/06/19 14:20 98.1 98.1 07/06/19 01:10 15.0 Labs Labs Laboratory Tests Test 07/06/19 00:15 07/06/19 01:00 07/06/19 01:38 07/06/19 01:45 White Blood Count 18.1 x10^3/uL (4.0-11.0) 20.5 x10^3/uL (4.0-11.0) Red Blood Count 2.39 x10^6/uL (4.30-5.70) 1.88 x10^6/uL (4.30-5.70) Hemoglobin 7.8 g/dL (13.0-17.5) 6.2 g/dL (13.0-17.5) Hematocrit 23.5 % (39.0-53.0) 19.6 % (39.0-53.0) Mean Corpuscular Volume 99 fL (79-100) 104 fL (79-100) Mean Corpuscular Hemoglobin 33 pg (25-35) 33 pg (25-35) Mean Corpuscular Hemoglobin Concent 33 g/dL (31-37) 32 g/dL (31-37) Red Cell Distribution Width 17.0 % (11.5-14.5) 18.1 % (11.5-14.5) Platelet Count 135 x10^3/uL (140-400) 124 x10^3/uL (140-400) Neutrophils (%) (Auto) 68 % (31-73) Lymphocytes (%) (Auto) 22 % (24-48) Monocytes (%) (Auto) 10 % (0-9) Eosinophils (%) (Auto) 0 % (0-3) Basophils (%) (Auto) 0 % (0-3) Neutrophils # (Auto) 12.3 x10^3/uL (1.8-7.7) Lymphocytes # (Auto) 4.0 x10^3/uL (1.0-4.8) Monocytes # (Auto) 1.8 x10^3/uL (0.0-1.1) Eosinophils # (Auto) 0.0 x10^3/uL (0.0-0.7) Basophils # (Auto) 0.1 x10^3/uL (0.0-0.2) Segmented Neutrophils % 40 % (35-66) Band Neutrophils % 28 % (0-9) Lymphocytes % 21 % (24-48) Monocytes % 10 % (0-10) Myelocytes % 1 % (0-0) Toxic Granulation Slight Platelet Estimate Decreased (ADEQUATE) Polychromasia Slight Crenated Cell Present Prothrombin Time 22.0 SEC (11.7-14.0) Prothromb Time International Ratio 2.0 (0.8-1.1) Sodium Level 144 mmol/L (136-145) Potassium Level 4.5 mmol/L (3.5-5.1) Chloride Level 109 mmol/L (98-107) Carbon Dioxide Level 12 mmol/L (21-32) Anion Gap 23 (6-14) Blood Urea Nitrogen 43 mg/dL (8-26) Creatinine 1.4 mg/dL (0.7-1.3) Estimated GFR (Cockcroft-Gault) 49.1 BUN/Creatinine Ratio 31 (6-20) Glucose Level 381 mg/dL (70-99) Calcium Level 7.9 mg/dL (8.5-10.1) Total Bilirubin 0.7 mg/dL (0.2-1.0) Aspartate Amino Transf (AST/SGOT) 15 U/L (15-37) Alanine Aminotransferase (ALT/SGPT) 16 U/L (16-63) Alkaline Phosphatase 112 U/L (46-116) Total Protein 4.6 g/dL (6.4-8.2) Albumin 2.4 g/dL (3.4-5.0) Albumin/Globulin Ratio 1.1 (1.0-1.7) O2 Saturation 99 % (92-99) 99 % (92-99) Arterial Blood pH < 6.72 (7.35-7.45) 6.74 (7.35-7.45) Arterial Blood pCO2 at Patient Temp 51 mmHg (35-46) 46 mmHg (35-46) Arterial Blood pO2 at Patient Temp 290 mmHg (65-108) 316 mmHg (65-108) Arterial Blood HCO3 6 mmol/L (21-28) 6 mmol/L (21-28) Arterial Blood Base Excess -29 mmol/L (-3-3) -27 mmol/L (-3-3) FiO2 100 100 Test 07/06/19 07:35 07/06/19 08:00 White Blood Count 14.9 x10^3/uL (4.0-11.0) Red Blood Count 3.37 x10^6/uL (4.30-5.70) Hemoglobin 10.6 g/dL (13.0-17.5) Hematocrit 31.1 % (39.0-53.0) Mean Corpuscular Volume 92 fL (79-100) Mean Corpuscular Hemoglobin 32 pg (25-35) Mean Corpuscular Hemoglobin Concent 34 g/dL (31-37) Red Cell Distribution Width 18.2 % (11.5-14.5) Platelet Count 116 x10^3/uL (140-400) Neutrophils (%) (Auto) 86 % (31-73) Lymphocytes (%) (Auto) 10 % (24-48) Monocytes (%) (Auto) 3 % (0-9) Eosinophils (%) (Auto) 0 % (0-3) Basophils (%) (Auto) 1 % (0-3) Neutrophils # (Auto) 12.8 x10^3/uL (1.8-7.7) Lymphocytes # (Auto) 1.5 x10^3/uL (1.0-4.8) Monocytes # (Auto) 0.5 x10^3/uL (0.0-1.1) Eosinophils # (Auto) 0.0 x10^3/uL (0.0-0.7) Basophils # (Auto) 0.1 x10^3/uL (0.0-0.2) Sodium Level 145 mmol/L (136-145) Potassium Level 4.1 mmol/L (3.5-5.1) Chloride Level 112 mmol/L (98-107) Carbon Dioxide Level 19 mmol/L (21-32) Anion Gap 14 (6-14) Blood Urea Nitrogen 50 mg/dL (8-26) Creatinine 1.8 mg/dL (0.7-1.3) Estimated GFR (Cockcroft-Gault) 36.8 Glucose Level 356 mg/dL (70-99) Calcium Level 7.4 mg/dL (8.5-10.1) O2 Saturation 99 % (92-99) Arterial Blood pH 7.34 (7.35-7.45) Arterial Blood pCO2 at Patient Temp 24 mmHg (35-46) Arterial Blood pO2 at Patient Temp 198 mmHg (65-108) Arterial Blood HCO3 13 mmol/L (21-28) Arterial Blood Base Excess -11 mmol/L (-3-3) FiO2 100 Laboratory Tests Test 07/06/19 00:15 07/06/19 01:00 07/06/19 01:38 07/06/19 01:45 White Blood Count 18.1 x10^3/uL (4.0-11.0) 20.5 x10^3/uL (4.0-11.0) Red Blood Count 2.39 x10^6/uL (4.30-5.70) 1.88 x10^6/uL (4.30-5.70) Hemoglobin 7.8 g/dL (13.0-17.5) 6.2 g/dL (13.0-17.5) Hematocrit 23.5 % (39.0-53.0) 19.6 % (39.0-53.0) Mean Corpuscular Volume 99 fL (79-100) 104 fL (79-100) Mean Corpuscular Hemoglobin 33 pg (25-35) 33 pg (25-35) Mean Corpuscular Hemoglobin Concent 33 g/dL (31-37) 32 g/dL (31-37) Red Cell Distribution Width 17.0 % (11.5-14.5) 18.1 % (11.5-14.5) Platelet Count 135 x10^3/uL (140-400) 124 x10^3/uL (140-400) Neutrophils (%) (Auto) 68 % (31-73) Lymphocytes (%) (Auto) 22 % (24-48) Monocytes (%) (Auto) 10 % (0-9) Eosinophils (%) (Auto) 0 % (0-3) Basophils (%) (Auto) 0 % (0-3) Neutrophils # (Auto) 12.3 x10^3/uL (1.8-7.7) Lymphocytes # (Auto) 4.0 x10^3/uL (1.0-4.8) Monocytes # (Auto) 1.8 x10^3/uL (0.0-1.1) Eosinophils # (Auto) 0.0 x10^3/uL (0.0-0.7) Basophils # (Auto) 0.1 x10^3/uL (0.0-0.2) Segmented Neutrophils % 40 % (35-66) Band Neutrophils % 28 % (0-9) Lymphocytes % 21 % (24-48) Monocytes % 10 % (0-10) Myelocytes % 1 % (0-0) Toxic Granulation Slight Platelet Estimate Decreased (ADEQUATE) Polychromasia Slight Crenated Cell Present Prothrombin Time 22.0 SEC (11.7-14.0) Prothromb Time International Ratio 2.0 (0.8-1.1) Sodium Level 144 mmol/L (136-145) Potassium Level 4.5 mmol/L (3.5-5.1) Chloride Level 109 mmol/L (98-107) Carbon Dioxide Level 12 mmol/L (21-32) Anion Gap 23 (6-14) Blood Urea Nitrogen 43 mg/dL (8-26) Creatinine 1.4 mg/dL (0.7-1.3) Estimated GFR (Cockcroft-Gault) 49.1 BUN/Creatinine Ratio 31 (6-20) Glucose Level 381 mg/dL (70-99) Calcium Level 7.9 mg/dL (8.5-10.1) Total Bilirubin 0.7 mg/dL (0.2-1.0) Aspartate Amino Transf (AST/SGOT) 15 U/L (15-37) Alanine Aminotransferase (ALT/SGPT) 16 U/L (16-63) Alkaline Phosphatase 112 U/L (46-116) Total Protein 4.6 g/dL (6.4-8.2) Albumin 2.4 g/dL (3.4-5.0) Albumin/Globulin Ratio 1.1 (1.0-1.7) O2 Saturation 99 % (92-99) 99 % (92-99) Arterial Blood pH < 6.72 (7.35-7.45) 6.74 (7.35-7.45) Arterial Blood pCO2 at Patient Temp 51 mmHg (35-46) 46 mmHg (35-46) Arterial Blood pO2 at Patient Temp 290 mmHg (65-108) 316 mmHg (65-108) Arterial Blood HCO3 6 mmol/L (21-28) 6 mmol/L (21-28) Arterial Blood Base Excess -29 mmol/L (-3-3) -27 mmol/L (-3-3) FiO2 100 100 Test 07/06/19 07:35 07/06/19 08:00 White Blood Count 14.9 x10^3/uL (4.0-11.0) Red Blood Count 3.37 x10^6/uL (4.30-5.70) Hemoglobin 10.6 g/dL (13.0-17.5) Hematocrit 31.1 % (39.0-53.0) Mean Corpuscular Volume 92 fL (79-100) Mean Corpuscular Hemoglobin 32 pg (25-35) Mean Corpuscular Hemoglobin Concent 34 g/dL (31-37) Red Cell Distribution Width 18.2 % (11.5-14.5) Platelet Count 116 x10^3/uL (140-400) Neutrophils (%) (Auto) 86 % (31-73) Lymphocytes (%) (Auto) 10 % (24-48) Monocytes (%) (Auto) 3 % (0-9) Eosinophils (%) (Auto) 0 % (0-3) Basophils (%) (Auto) 1 % (0-3) Neutrophils # (Auto) 12.8 x10^3/uL (1.8-7.7) Lymphocytes # (Auto) 1.5 x10^3/uL (1.0-4.8) Monocytes # (Auto) 0.5 x10^3/uL (0.0-1.1) Eosinophils # (Auto) 0.0 x10^3/uL (0.0-0.7) Basophils # (Auto) 0.1 x10^3/uL (0.0-0.2) Sodium Level 145 mmol/L (136-145) Potassium Level 4.1 mmol/L (3.5-5.1) Chloride Level 112 mmol/L (98-107) Carbon Dioxide Level 19 mmol/L (21-32) Anion Gap 14 (6-14) Blood Urea Nitrogen 50 mg/dL (8-26) Creatinine 1.8 mg/dL (0.7-1.3) Estimated GFR (Cockcroft-Gault) 36.8 Glucose Level 356 mg/dL (70-99) Calcium Level 7.4 mg/dL (8.5-10.1) O2 Saturation 99 % (92-99) Arterial Blood pH 7.34 (7.35-7.45) Arterial Blood pCO2 at Patient Temp 24 mmHg (35-46) Arterial Blood pO2 at Patient Temp 198 mmHg (65-108) Arterial Blood HCO3 13 mmol/L (21-28) Arterial Blood Base Excess -11 mmol/L (-3-3) FiO2 100 JEANNETTE PÉREZ MD Jul 06, 2019 16:25
[2019-07-06 16:28] LABS: HEMATOCRIT 23.1 % (39.0-53.0); HEMOGLOBIN 8.3 g/dL (13.0-17.5); RED BLOOD COUNT 2.54 x10^6/uL (4.30-5.70); WHITE BLOOD COUNT 8.1 x10^3/uL (4.0-11.0)
--- NOTE | 2019-07-06 16:32 | NUR ---
SS following for discharge planning. SS reviewed pt chart. Pt is from home with spouse and is currently on the vent. SS will continue to follow for discharge planning.
[2019-07-06 20:24] LABS: HEMATOCRIT 22.6 % (39.0-53.0); RED BLOOD COUNT 2.5 x10^6/uL (4.30-5.70); RED CELL DISTRIBUTION WIDTH 18.6 % (11.5-14.5); WHITE BLOOD COUNT 7.8 x10^3/uL (4.0-11.0)
[2019-07-07] VITALS (13 sets, daily range): BP systolic 75–134; BP diastolic 43–62
[2019-07-07] MEDS: PIPERACILLIN/TAZOBACTAM 3.375 GM in IV NORMAL SALINE 50ML 50 ML IV SCH ×4 (00:09→18:00)
[2019-07-07] MEDS: NOREPINEPHRIN 8MG/250ML PREMIX 250 ML IV PRN (00:09)
[2019-07-07] MEDS: INSULIN LISPRO 300 UNITS/3 ML VIAL. SQ SCH ×4 (00:10→18:00)
[2019-07-07] MEDS: MIDAZOLAM 100mg/100ml NS BAG 100 ML IV PRN (04:27)
[2019-07-07] MEDS: PANTOPRAZOLE SODIUM IV DRIP 80 MG in IV NORMAL SALINE 100ML 100 ML IV SCH ×2 (06:03→16:00)
[2019-07-07 06:22] LABS: HEMATOCRIT 22.2 % (39.0-53.0); HEMOGLOBIN 7.7 g/dL (13.0-17.5); RED BLOOD COUNT 2.44 x10^6/uL (4.30-5.70); RED CELL DISTRIBUTION WIDTH 18.7 % (11.5-14.5); WHITE BLOOD COUNT 8.1 x10^3/uL (4.0-11.0)
--- NOTE | 2019-07-07 08:01 | RAD ---
PORTABLE CHEST 1V History: Respiratory failure Comparison: 07/06/2019 Findings: 2 AP views of the chest are submitted. Tip of endotracheal tube is about 7 cm from brigid. There is again left subclavian port catheter with the tip in the inferior aspect of this report vena cava. There is again enteric catheter coursing in the region of stomach. Cardiac silhouette is stable. There is no pneumothorax. Mild left base airspace opacity and mild blunting of the right costophrenic sulcus is unchanged. There is atherosclerotic calcification thoracic aorta. Impression: 1. There are again support catheters and tubes as stated. Mild left base airspace opacity is unchanged. Electronically signed by: Evangelista Arellano MD (07/07/2019 7:59 AM) [facility]
[2019-07-07 08:11] LABS: CALCIUM 7.6 mg/dL (8.5-10.1); CREATININE 1.9 mg/dL (0.7-1.3); GFR 34.5; POTASSIUM 3.5 mmol/L (3.5-5.1)
--- NOTE | 2019-07-07 08:39 | PDOC ---
PULMONARY PROGRESS NOTES Subjective Pt. remains on vent overnight with continued bloody gastric secretions. Vent: A/C 20//600/5/40% Nursing reports no vent asynchrony and minimal secretions Vitals Vital Signs Date Time Temp Pulse Resp B/P (MAP) Pulse Ox O2 Delivery O2 Flow Rate FiO2 07/07/19 08:00 Mechanical Ventilator 07/07/19 08:00 94 30 112/56 (74) 100 07/07/19 07:00 98.4 98.4 Comments unable to obtain ROS 2/2 intubated /sedated Lungs: Other (dim in bases ) Cardiovascular: S1, S2 Abdomen: Soft Extremities: No Edema Skin: Dry, Other (pale) Impression intubated/sedated large amount of dark/bloody gastric secretions Labs Laboratory Tests Test 07/06/19 00:15 07/06/19 01:00 07/06/19 01:38 07/06/19 01:45 White Blood Count 18.1 x10^3/uL (4.0-11.0) 20.5 x10^3/uL (4.0-11.0) Red Blood Count 2.39 x10^6/uL (4.30-5.70) 1.88 x10^6/uL (4.30-5.70) Hemoglobin 7.8 g/dL (13.0-17.5) 6.2 g/dL (13.0-17.5) Hematocrit 23.5 % (39.0-53.0) 19.6 % (39.0-53.0) Mean Corpuscular Volume 99 fL (79-100) 104 fL (79-100) Mean Corpuscular Hemoglobin 33 pg (25-35) 33 pg (25-35) Mean Corpuscular Hemoglobin Concent 33 g/dL (31-37) 32 g/dL (31-37) Red Cell Distribution Width 17.0 % (11.5-14.5) 18.1 % (11.5-14.5) Platelet Count 135 x10^3/uL (140-400) 124 x10^3/uL (140-400) Neutrophils (%) (Auto) 68 % (31-73) Lymphocytes (%) (Auto) 22 % (24-48) Monocytes (%) (Auto) 10 % (0-9) Eosinophils (%) (Auto) 0 % (0-3) Basophils (%) (Auto) 0 % (0-3) Neutrophils # (Auto) 12.3 x10^3/uL (1.8-7.7) Lymphocytes # (Auto) 4.0 x10^3/uL (1.0-4.8) Monocytes # (Auto) 1.8 x10^3/uL (0.0-1.1) Eosinophils # (Auto) 0.0 x10^3/uL (0.0-0.7) Basophils # (Auto) 0.1 x10^3/uL (0.0-0.2) Segmented Neutrophils % 40 % (35-66) Band Neutrophils % 28 % (0-9) Lymphocytes % 21 % (24-48) Monocytes % 10 % (0-10) Myelocytes % 1 % (0-0) Toxic Granulation Slight Platelet Estimate Decreased (ADEQUATE) Polychromasia Slight Crenated Cell Present Prothrombin Time 22.0 SEC (11.7-14.0) Prothromb Time International Ratio 2.0 (0.8-1.1) Sodium Level 144 mmol/L (136-145) Potassium Level 4.5 mmol/L (3.5-5.1) Chloride Level 109 mmol/L (98-107) Carbon Dioxide Level 12 mmol/L (21-32) Anion Gap 23 (6-14) Blood Urea Nitrogen 43 mg/dL (8-26) Creatinine 1.4 mg/dL (0.7-1.3) Estimated GFR (Cockcroft-Gault) 49.1 BUN/Creatinine Ratio 31 (6-20) Glucose Level 381 mg/dL (70-99) Calcium Level 7.9 mg/dL (8.5-10.1) Total Bilirubin 0.7 mg/dL (0.2-1.0) Aspartate Amino Transf (AST/SGOT) 15 U/L (15-37) Alanine Aminotransferase (ALT/SGPT) 16 U/L (16-63) Alkaline Phosphatase 112 U/L (46-116) Total Protein 4.6 g/dL (6.4-8.2) Albumin 2.4 g/dL (3.4-5.0) Albumin/Globulin Ratio 1.1 (1.0-1.7) O2 Saturation 99 % (92-99) 99 % (92-99) Arterial Blood pH < 6.72 (7.35-7.45) 6.74 (7.35-7.45) Arterial Blood pCO2 at Patient Temp 51 mmHg (35-46) 46 mmHg (35-46) Arterial Blood pO2 at Patient Temp 290 mmHg (65-108) 316 mmHg (65-108) Arterial Blood HCO3 6 mmol/L (21-28) 6 mmol/L (21-28) Arterial Blood Base Excess -29 mmol/L (-3-3) -27 mmol/L (-3-3) FiO2 100 100 Test 07/06/19 07:35 07/06/19 08:00 07/06/19 11:36 07/06/19 16:20 White Blood Count 14.9 x10^3/uL (4.0-11.0) 8.1 x10^3/uL (4.0-11.0) Red Blood Count 3.37 x10^6/uL (4.30-5.70) 2.54 x10^6/uL (4.30-5.70) Hemoglobin 10.6 g/dL (13.0-17.5) 8.3 g/dL (13.0-17.5) Hematocrit 31.1 % (39.0-53.0) 23.1 % (39.0-53.0) Mean Corpuscular Volume 92 fL (79-100) 91 fL (79-100) Mean Corpuscular Hemoglobin 32 pg (25-35) 33 pg (25-35) Mean Corpuscular Hemoglobin Concent 34 g/dL (31-37) 36 g/dL (31-37) Red Cell Distribution Width 18.2 % (11.5-14.5) 18.0 % (11.5-14.5) Platelet Count 116 x10^3/uL (140-400) 85 x10^3/uL (140-400) Neutrophils (%) (Auto) 86 % (31-73) Lymphocytes (%) (Auto) 10 % (24-48) Monocytes (%) (Auto) 3 % (0-9) Eosinophils (%) (Auto) 0 % (0-3) Basophils (%) (Auto) 1 % (0-3) Neutrophils # (Auto) 12.8 x10^3/uL (1.8-7.7) Lymphocytes # (Auto) 1.5 x10^3/uL (1.0-4.8) Monocytes # (Auto) 0.5 x10^3/uL (0.0-1.1) Eosinophils # (Auto) 0.0 x10^3/uL (0.0-0.7) Basophils # (Auto) 0.1 x10^3/uL (0.0-0.2) Sodium Level 145 mmol/L (136-145) Potassium Level 4.1 mmol/L (3.5-5.1) Chloride Level 112 mmol/L (98-107) Carbon Dioxide Level 19 mmol/L (21-32) Anion Gap 14 (6-14) Blood Urea Nitrogen 50 mg/dL (8-26) Creatinine 1.8 mg/dL (0.7-1.3) Estimated GFR (Cockcroft-Gault) 36.8 Glucose Level 356 mg/dL (70-99) Calcium Level 7.4 mg/dL (8.5-10.1) O2 Saturation 99 % (92-99) Arterial Blood pH 7.34 (7.35-7.45) Arterial Blood pCO2 at Patient Temp 24 mmHg (35-46) Arterial Blood pO2 at Patient Temp 198 mmHg (65-108) Arterial Blood HCO3 13 mmol/L (21-28) Arterial Blood Base Excess -11 mmol/L (-3-3) FiO2 100 Glucose (Fingerstick) 323 mg/dL (70-99) Test 07/06/19 18:01 07/06/19 20:20 07/07/19 00:08 07/07/19 06:00 Glucose (Fingerstick) 245 mg/dL (70-99) 208 mg/dL (70-99) 194 mg/dL (70-99) White Blood Count 7.8 x10^3/uL (4.0-11.0) Red Blood Count 2.50 x10^6/uL (4.30-5.70) Hemoglobin 8.0 g/dL (13.0-17.5) Hematocrit 22.6 % (39.0-53.0) Mean Corpuscular Volume 91 fL (79-100) Mean Corpuscular Hemoglobin 32 pg (25-35) Mean Corpuscular Hemoglobin Concent 35 g/dL (31-37) Red Cell Distribution Width 18.6 % (11.5-14.5) Platelet Count 84 x10^3/uL (140-400) Test 07/07/19 06:10 White Blood Count 8.1 x10^3/uL (4.0-11.0) Red Blood Count 2.44 x10^6/uL (4.30-5.70) Hemoglobin 7.7 g/dL (13.0-17.5) Hematocrit 22.2 % (39.0-53.0) Mean Corpuscular Volume 91 fL (79-100) Mean Corpuscular Hemoglobin 31 pg (25-35) Mean Corpuscular Hemoglobin Concent 35 g/dL (31-37) Red Cell Distribution Width 18.7 % (11.5-14.5) Platelet Count 92 x10^3/uL (140-400) Sodium Level 147 mmol/L (136-145) Potassium Level 3.5 mmol/L (3.5-5.1) Chloride Level 113 mmol/L (98-107) Carbon Dioxide Level 21 mmol/L (21-32) Anion Gap 13 (6-14) Blood Urea Nitrogen 46 mg/dL (8-26) Creatinine 1.9 mg/dL (0.7-1.3) Estimated GFR (Cockcroft-Gault) 34.5 Glucose Level 206 mg/dL (70-99) Calcium Level 7.6 mg/dL (8.5-10.1) Laboratory Tests Test 07/06/19 11:36 07/06/19 16:20 07/06/19 18:01 07/06/19 20:20 Glucose (Fingerstick) 323 mg/dL (70-99) 245 mg/dL (70-99) White Blood Count 8.1 x10^3/uL (4.0-11.0) 7.8 x10^3/uL (4.0-11.0) Red Blood Count 2.54 x10^6/uL (4.30-5.70) 2.50 x10^6/uL (4.30-5.70) Hemoglobin 8.3 g/dL (13.0-17.5) 8.0 g/dL (13.0-17.5) Hematocrit 23.1 % (39.0-53.0) 22.6 % (39.0-53.0) Mean Corpuscular Volume 91 fL (79-100) 91 fL (79-100) Mean Corpuscular Hemoglobin 33 pg (25-35) 32 pg (25-35) Mean Corpuscular Hemoglobin Concent 36 g/dL (31-37) 35 g/dL (31-37) Red Cell Distribution Width 18.0 % (11.5-14.5) 18.6 % (11.5-14.5) Platelet Count 85 x10^3/uL (140-400) 84 x10^3/uL (140-400) Test 07/07/19 00:08 07/07/19 06:00 07/07/19 06:10 Glucose (Fingerstick) 208 mg/dL (70-99) 194 mg/dL (70-99) White Blood Count 8.1 x10^3/uL (4.0-11.0) Red Blood Count 2.44 x10^6/uL (4.30-5.70) Hemoglobin 7.7 g/dL (13.0-17.5) Hematocrit 22.2 % (39.0-53.0) Mean Corpuscular Volume 91 fL (79-100) Mean Corpuscular Hemoglobin 31 pg (25-35) Mean Corpuscular Hemoglobin Concent 35 g/dL (31-37) Red Cell Distribution Width 18.7 % (11.5-14.5) Platelet Count 92 x10^3/uL (140-400) Sodium Level 147 mmol/L (136-145) Potassium Level 3.5 mmol/L (3.5-5.1) Chloride Level 113 mmol/L (98-107) Carbon Dioxide Level 21 mmol/L (21-32) Anion Gap 13 (6-14) Blood Urea Nitrogen 46 mg/dL (8-26) Creatinine 1.9 mg/dL (0.7-1.3) Estimated GFR (Cockcroft-Gault) 34.5 Glucose Level 206 mg/dL (70-99) Calcium Level 7.6 mg/dL (8.5-10.1) Medications Active Scripts Medications Dose Route/Sig Max Daily Dose Days Date Category Xarelto (Rivaroxaban) 20 Mg Tablet 20 Mg PO [id number] 07/06/19 Reported Zantac (Ranitidine Hcl) 300 Mg Tablet 300 Mg PO DAILY 11/09/17 Reported Crestor (Rosuvastatin Calcium) 5 Mg Tablet 5 Mg PO HS 11/09/17 Reported Metformin Hcl 500 Mg Tablet 500 Mg PO BIDWMEALS 11/09/17 Reported Prilosec Otc (Omeprazole Magnesium) 20 Mg Tablet.dr 20 Mg PO DAILY 11/09/17 Reported Impression . 1. Acute respiratory failure. 2. Severe metabolic acidosis. 3. Hypovolemic shock. 4. Severe metabolic acidosis, suspect secondary to hypovolemic shock. 5. 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 6. Acute blood loss anemia. 7. Coagulopathy. 8. History of deep venous thrombosis. 9. Bilateral basilar infiltrates volume loss. 10. History of tobacco dependence. 11. PARDEEP Plan . 1. Continue current support 2. pt. is on 40% and peep of 5, possible SBT in am if remains clinically stable 3. Maintain pressors for mean arterial pressure above 60.-- minimal levophed support 4. Initiate empiric antibiotics for fever: cont zosyn 5. GI prophylaxis-- protonix gtt 6. Follow Dr. Antunez's input. 7. No A/C 2/ bleeding 8. D/W daughter, family planning to move towards comfort care measures, Agree PROSPER ELAINE MD Jul 07, 2019 08:39
[2019-07-07 08:42] LABS: BASE EXCESS ABG -4 mmol/L (-3-3); HCO3 ABG 18 mmol/L (21-28); PCO2 ABG 23 mmHg (35-46); PO2 ABG 102 mmHg (65-108); SAT O2 ABG 98 % (92-99)
[2019-07-07 08:43] LABS: FIO2 ABG 50
--- NOTE | 2019-07-07 09:05 | PDOC ---
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 sedated) Assessment Assessment IMPRESSION AND PLAN: 1. 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 HER-2/sue negative, EBV negative, PD-L1 negative, MMR stable. He was started on palliative chemotherapy with FOLFOX on 12/07/2017. He has been actively getting chemotherapy every 2 weeks. He has done well with chemotherapy with reasonably good response. His most recent chemotherapy was on 06/26/2019 which was cycle #33. His most recent PET scan was on 05/03/2019 which revealed mild tumor progression at the gastroesophageal junction. Unchanged mild ill-defined gastrohepatic soft tissue thickening and nodularity along the proximal lesser curvature of the stomach, compatible with tumor infiltration. He is now admitted with GI bleed and respiratory failure. There has been no improvement and he continues to bleed due to gastric cancer. Appreciate GI consult. I d/w dtr who is wanting to pursue comfort care and I agree. She thinks the rest of family are not ready for it yet. Await Dr Kaveh michaud and plan comfort care if family agrees. 2. Gastrointestinal bleed. Appreciate GI consultation. No role for endoscopy in view of malignancy per Dr. Barajas and I agree. s/p FFP 2 units and vitamin K 07/06/19. His last dose of Xarelto was on 07/05/2019. Continue aggressive supportive care. 3. Coagulopathy due to Xarelto. I discussed with registered nurse. s/p 2 units of FFP and vitamin K 07/06/19 and monitor hemoglobin closely and transfuse as needed. 4. History of deep venous thrombosis, right lower extremity on 06/16/2018 and he has been on anticoagulation with Xarelto since then. Comment Review of Relevant I have reviewed the following items addison (where applicable) has been applied. Labs Laboratory Tests Test 07/06/19 00:15 07/06/19 01:00 07/06/19 01:38 07/06/19 01:45 White Blood Count 18.1 x10^3/uL (4.0-11.0) 20.5 x10^3/uL (4.0-11.0) Red Blood Count 2.39 x10^6/uL (4.30-5.70) 1.88 x10^6/uL (4.30-5.70) Hemoglobin 7.8 g/dL (13.0-17.5) 6.2 g/dL (13.0-17.5) Hematocrit 23.5 % (39.0-53.0) 19.6 % (39.0-53.0) Mean Corpuscular Volume 99 fL (79-100) 104 fL (79-100) Mean Corpuscular Hemoglobin 33 pg (25-35) 33 pg (25-35) Mean Corpuscular Hemoglobin Concent 33 g/dL (31-37) 32 g/dL (31-37) Red Cell Distribution Width 17.0 % (11.5-14.5) 18.1 % (11.5-14.5) Platelet Count 135 x10^3/uL (140-400) 124 x10^3/uL (140-400) Neutrophils (%) (Auto) 68 % (31-73) Lymphocytes (%) (Auto) 22 % (24-48) Monocytes (%) (Auto) 10 % (0-9) Eosinophils (%) (Auto) 0 % (0-3) Basophils (%) (Auto) 0 % (0-3) Neutrophils # (Auto) 12.3 x10^3/uL (1.8-7.7) Lymphocytes # (Auto) 4.0 x10^3/uL (1.0-4.8) Monocytes # (Auto) 1.8 x10^3/uL (0.0-1.1) Eosinophils # (Auto) 0.0 x10^3/uL (0.0-0.7) Basophils # (Auto) 0.1 x10^3/uL (0.0-0.2) Segmented Neutrophils % 40 % (35-66) Band Neutrophils % 28 % (0-9) Lymphocytes % 21 % (24-48) Monocytes % 10 % (0-10) Myelocytes % 1 % (0-0) Toxic Granulation Slight Platelet Estimate Decreased (ADEQUATE) Polychromasia Slight Crenated Cell Present Prothrombin Time 22.0 SEC (11.7-14.0) Prothromb Time International Ratio 2.0 (0.8-1.1) Sodium Level 144 mmol/L (136-145) Potassium Level 4.5 mmol/L (3.5-5.1) Chloride Level 109 mmol/L (98-107) Carbon Dioxide Level 12 mmol/L (21-32) Anion Gap 23 (6-14) Blood Urea Nitrogen 43 mg/dL (8-26) Creatinine 1.4 mg/dL (0.7-1.3) Estimated GFR (Cockcroft-Gault) 49.1 BUN/Creatinine Ratio 31 (6-20) Glucose Level 381 mg/dL (70-99) Calcium Level 7.9 mg/dL (8.5-10.1) Total Bilirubin 0.7 mg/dL (0.2-1.0) Aspartate Amino Transf (AST/SGOT) 15 U/L (15-37) Alanine Aminotransferase (ALT/SGPT) 16 U/L (16-63) Alkaline Phosphatase 112 U/L (46-116) Total Protein 4.6 g/dL (6.4-8.2) Albumin 2.4 g/dL (3.4-5.0) Albumin/Globulin Ratio 1.1 (1.0-1.7) O2 Saturation 99 % (92-99) 99 % (92-99) Arterial Blood pH < 6.72 (7.35-7.45) 6.74 (7.35-7.45) Arterial Blood pCO2 at Patient Temp 51 mmHg (35-46) 46 mmHg (35-46) Arterial Blood pO2 at Patient Temp 290 mmHg (65-108) 316 mmHg (65-108) Arterial Blood HCO3 6 mmol/L (21-28) 6 mmol/L (21-28) Arterial Blood Base Excess -29 mmol/L (-3-3) -27 mmol/L (-3-3) FiO2 100 100 Test 07/06/19 07:35 07/06/19 08:00 07/06/19 11:36 07/06/19 16:20 White Blood Count 14.9 x10^3/uL (4.0-11.0) 8.1 x10^3/uL (4.0-11.0) Red Blood Count 3.37 x10^6/uL (4.30-5.70) 2.54 x10^6/uL (4.30-5.70) Hemoglobin 10.6 g/dL (13.0-17.5) 8.3 g/dL (13.0-17.5) Hematocrit 31.1 % (39.0-53.0) 23.1 % (39.0-53.0) Mean Corpuscular Volume 92 fL (79-100) 91 fL (79-100) Mean Corpuscular Hemoglobin 32 pg (25-35) 33 pg (25-35) Mean Corpuscular Hemoglobin Concent 34 g/dL (31-37) 36 g/dL (31-37) Red Cell Distribution Width 18.2 % (11.5-14.5) 18.0 % (11.5-14.5) Platelet Count 116 x10^3/uL (140-400) 85 x10^3/uL (140-400) Neutrophils (%) (Auto) 86 % (31-73) Lymphocytes (%) (Auto) 10 % (24-48) Monocytes (%) (Auto) 3 % (0-9) Eosinophils (%) (Auto) 0 % (0-3) Basophils (%) (Auto) 1 % (0-3) Neutrophils # (Auto) 12.8 x10^3/uL (1.8-7.7) Lymphocytes # (Auto) 1.5 x10^3/uL (1.0-4.8) Monocytes # (Auto) 0.5 x10^3/uL (0.0-1.1) Eosinophils # (Auto) 0.0 x10^3/uL (0.0-0.7) Basophils # (Auto) 0.1 x10^3/uL (0.0-0.2) Sodium Level 145 mmol/L (136-145) Potassium Level 4.1 mmol/L (3.5-5.1) Chloride Level 112 mmol/L (98-107) Carbon Dioxide Level 19 mmol/L (21-32) Anion Gap 14 (6-14) Blood Urea Nitrogen 50 mg/dL (8-26) Creatinine 1.8 mg/dL (0.7-1.3) Estimated GFR (Cockcroft-Gault) 36.8 Glucose Level 356 mg/dL (70-99) Calcium Level 7.4 mg/dL (8.5-10.1) O2 Saturation 99 % (92-99) Arterial Blood pH 7.34 (7.35-7.45) Arterial Blood pCO2 at Patient Temp 24 mmHg (35-46) Arterial Blood pO2 at Patient Temp 198 mmHg (65-108) Arterial Blood HCO3 13 mmol/L (21-28) Arterial Blood Base Excess -11 mmol/L (-3-3) FiO2 100 Glucose (Fingerstick) 323 mg/dL (70-99) Test 07/06/19 18:01 07/06/19 20:20 07/07/19 00:08 07/07/19 06:00 Glucose (Fingerstick) 245 mg/dL (70-99) 208 mg/dL (70-99) 194 mg/dL (70-99) White Blood Count 7.8 x10^3/uL (4.0-11.0) Red Blood Count 2.50 x10^6/uL (4.30-5.70) Hemoglobin 8.0 g/dL (13.0-17.5) Hematocrit 22.6 % (39.0-53.0) Mean Corpuscular Volume 91 fL (79-100) Mean Corpuscular Hemoglobin 32 pg (25-35) Mean Corpuscular Hemoglobin Concent 35 g/dL (31-37) Red Cell Distribution Width 18.6 % (11.5-14.5) Platelet Count 84 x10^3/uL (140-400) Test 07/07/19 06:10 07/07/19 08:35 White Blood Count 8.1 x10^3/uL (4.0-11.0) Red Blood Count 2.44 x10^6/uL (4.30-5.70) Hemoglobin 7.7 g/dL (13.0-17.5) Hematocrit 22.2 % (39.0-53.0) Mean Corpuscular Volume 91 fL (79-100) Mean Corpuscular Hemoglobin 31 pg (25-35) Mean Corpuscular Hemoglobin Concent 35 g/dL (31-37) Red Cell Distribution Width 18.7 % (11.5-14.5) Platelet Count 92 x10^3/uL (140-400) Sodium Level 147 mmol/L (136-145) Potassium Level 3.5 mmol/L (3.5-5.1) Chloride Level 113 mmol/L (98-107) Carbon Dioxide Level 21 mmol/L (21-32) Anion Gap 13 (6-14) Blood Urea Nitrogen 46 mg/dL (8-26) Creatinine 1.9 mg/dL (0.7-1.3) Estimated GFR (Cockcroft-Gault) 34.5 Glucose Level 206 mg/dL (70-99) Calcium Level 7.6 mg/dL (8.5-10.1) O2 Saturation 98 % (92-99) Arterial Blood pH 7.50 (7.35-7.45) Arterial Blood pCO2 at Patient Temp 23 mmHg (35-46) Arterial Blood pO2 at Patient Temp 102 mmHg (65-108) Arterial Blood HCO3 18 mmol/L (21-28) Arterial Blood Base Excess -4 mmol/L (-3-3) FiO2 50 Laboratory Tests Test 07/06/19 11:36 07/06/19 16:20 07/06/19 18:01 07/06/19 20:20 Glucose (Fingerstick) 323 mg/dL (70-99) 245 mg/dL (70-99) White Blood Count 8.1 x10^3/uL (4.0-11.0) 7.8 x10^3/uL (4.0-11.0) Red Blood Count 2.54 x10^6/uL (4.30-5.70) 2.50 x10^6/uL (4.30-5.70) Hemoglobin 8.3 g/dL (13.0-17.5) 8.0 g/dL (13.0-17.5) Hematocrit 23.1 % (39.0-53.0) 22.6 % (39.0-53.0) Mean Corpuscular Volume 91 fL (79-100) 91 fL (79-100) Mean Corpuscular Hemoglobin 33 pg (25-35) 32 pg (25-35) Mean Corpuscular Hemoglobin Concent 36 g/dL (31-37) 35 g/dL (31-37) Red Cell Distribution Width 18.0 % (11.5-14.5) 18.6 % (11.5-14.5) Platelet Count 85 x10^3/uL (140-400) 84 x10^3/uL (140-400) Test 07/07/19 00:08 07/07/19 06:00 07/07/19 06:10 07/07/19 08:35 Glucose (Fingerstick) 208 mg/dL (70-99) 194 mg/dL (70-99) White Blood Count 8.1 x10^3/uL (4.0-11.0) Red Blood Count 2.44 x10^6/uL (4.30-5.70) Hemoglobin 7.7 g/dL (13.0-17.5) Hematocrit 22.2 % (39.0-53.0) Mean Corpuscular Volume 91 fL (79-100) Mean Corpuscular Hemoglobin 31 pg (25-35) Mean Corpuscular Hemoglobin Concent 35 g/dL (31-37) Red Cell Distribution Width 18.7 % (11.5-14.5) Platelet Count 92 x10^3/uL (140-400) Sodium Level 147 mmol/L (136-145) Potassium Level 3.5 mmol/L (3.5-5.1) Chloride Level 113 mmol/L (98-107) Carbon Dioxide Level 21 mmol/L (21-32) Anion Gap 13 (6-14) Blood Urea Nitrogen 46 mg/dL (8-26) Creatinine 1.9 mg/dL (0.7-1.3) Estimated GFR (Cockcroft-Gault) 34.5 Glucose Level 206 mg/dL (70-99) Calcium Level 7.6 mg/dL (8.5-10.1) O2 Saturation 98 % (92-99) Arterial Blood pH 7.50 (7.35-7.45) Arterial Blood pCO2 at Patient Temp 23 mmHg (35-46) Arterial Blood pO2 at Patient Temp 102 mmHg (65-108) Arterial Blood HCO3 18 mmol/L (21-28) Arterial Blood Base Excess -4 mmol/L (-3-3) FiO2 50 Medications Current Medications Pantoprazole Sodium 80 mg/ Sodium Chloride 100 ml @ 10 mls/hr Q10H IV Last administered on 07/07/19at 06:03; Start 07/06/19 at 00:00 Lorazepam (Ativan Inj) 2 mg PRN Q4HRS PRN IVP ANXIETY / AGITATION Last administered on 07/06/19at 00:59; Start 07/06/19 at 01:00; Stop 07/07/19 at 08:46; Status DC Fentanyl Citrate (Fentanyl 2ml Vial) 50 mcg PRN Q2HR PRN IVP SEVERE PAIN 7-10; Start 07/06/19 at 01:00; Stop 07/07/19 at 08:46; Status DC Norepinephrine Bitartrate 250 ml @ 16.159 mls/ hr CONT PRN IV SEE I/O RECORD Last administered on 07/07/19at 00:09; Start 07/06/19 at 01:00; Stop 07/07/19 at 08:46; Status DC Etomidate (Amidate) 20 mg STK-MED ONCE IV ; Start 07/06/19 at 01:19; Stop 07/06/19 at 01:19; Status DC Vecuronium [place] (Norcuron Bolus) 10 mg STK-MED ONCE IV ; Start 07/06/19 at 01:19; Stop 07/06/19 at 01:19; Status DC Midazolam HCl (Versed) 5 mg STK-MED ONCE .ROUTE ; Start 07/06/19 at 01:19; Stop 07/06/19 at 01:19; Status DC Midazolam HCl 100 ml @ 5 mls/hr CONT PRN IV SEE I/O RECORD Last administered on 07/07/19at 04:27; Start 07/06/19 at 01:30 Sodium Bicarbonate (Sodium Bicarb Adult 8.4% Syr) 100 meq 1X ONCE IV Last administered on 07/06/19at 02:22; Start 07/06/19 at 02:30; Stop 07/06/19 at 02:31; Status DC Sodium Bicarbonate 100 meq/Dextrose 1,100 ml @ 75 mls/hr [id number] IV Last administered on 07/06/19at 17:55; Start 07/06/19 at 02:30 Phenylephrine HCl 20 mg/Sodium Chloride 252 ml @ 32.508 mls/ hr CONT PRN IV SEE I/O RECORD Last administered on 07/06/19at 03:30; Start 07/06/19 at 03:15; Stop 07/07/19 at 08:46; Status DC Phytonadione (Vitamin K Ampule) 10 mg 1X ONCE SQ Last administered on 07/06/19at 09:49; Start 07/06/19 at 09:30; Stop 07/06/19 at 09:31; Status DC Dextrose (Dextrose 50%-Water Syringe) 12.5 gm PRN Q15MIN PRN IV SEE COMMENTS; Start 07/06/19 at 10:45 Insulin Human Lispro (HumaLOG) 0-7 UNITS Q6HRS SQ Last administered on 07/07/19at 00:10; Start 07/06/19 at 12:00 Piperacillin Sod/ Tazobactam Sod (Zosyn Per Pharmacy) 1 each PRN DAILY PRN MC SEE COMMENTS; Start 07/06/19 at 13:15 Piperacillin Sod/ Tazobactam Sod 3.375 gm/Sodium Chloride 50 ml @ 100 mls/hr Q6HRS IV Last administered on 07/07/19at 06:03; Start 07/06/19 at 14:00 Active Scripts Active Reported Xarelto (Rivaroxaban) 20 Mg Tablet 20 Mg PO DAILYWSUP Zantac (Ranitidine Hcl) 300 Mg Tablet 300 Mg PO DAILY Crestor (Rosuvastatin Calcium) 5 Mg Tablet 5 Mg PO HS Metformin Hcl 500 Mg Tablet 500 Mg PO BIDWMEALS Prilosec Otc (Omeprazole Magnesium) 20 Mg Tablet.dr 20 Mg PO DAILY Vitals/I & O Vital Sign - Last 24 Hours 07/06/19 07/06/19 07/06/19 07/06/19 10:00 10:35 11:00 11:00 Temp 98.6 98.6 Pulse 124 121 120 120 Resp 33 30 30 30 B/P (MAP) 115/61 (79) 131/61 125/65 125/65 (85) Pulse Ox 100 100 O2 Delivery Ventilator Ventilator 07/06/19 07/06/19 07/06/19 10/11/19 11:23 12:00 12:00 12:00 Temp 100.0 100.0 Pulse 112 112 Resp 32 32 B/P (MAP) 140/71 140/71 (94) Pulse Ox 100 100 O2 Delivery Ventilator Ventilator Mechanical Ventilator 07/06/19 07/06/19 07/06/19 07/06/19 12:26 12:30 12:30 13:00 Temp 100.1 100.1 Pulse 131 112 130 Resp 30 30 30 B/P (MAP) 107/52 (70) 107/53 107/52 (70) Pulse Ox 100 100 100 O2 Delivery Ventilator Ventilator Ventilator 07/06/19 07/06/19 07/06/19 07/06/19 14:00 14:05 14:20 14:30 Temp 98.8 98.8 98.1 98.8 98.8 98.1 Pulse 128 130 130 130 Resp 30 30 30 30 B/P (MAP) 95/59 (71) 96/57 121/60 98/53 (68) Pulse Ox 100 100 O2 Delivery Ventilator Ventilator 07/06/19 07/06/19 07/06/19 07/06/19 15:00 15:00 15:20 16:00 Pulse 129 129 Resp 30 30 B/P (MAP) 92/52 92/52 (65) Pulse Ox 100 100 O2 Delivery Ventilator Ventilator Mechanical Ventilator 07/06/19 07/06/19 07/06/19 07/06/19 16:00 16:00 17:00 18:00 Temp 98.3 98.3 98.3 98.3 Pulse 126 119 118 118 Resp 30 30 30 30 B/P (MAP) 94/52 (66) 113/57 113/57 (75) 115/58 (77) Pulse Ox 100 100 100 O2 Delivery Ventilator Ventilator Ventilator 07/06/19 07/06/19 07/06/19 07/06/19 19:00 19:41 20:00 20:15 Temp 99.1 99.1 Pulse 94 94 Resp 30 30 B/P (MAP) 111/56 (74) 133/60 (84) Pulse Ox 100 100 100 O2 Delivery Ventilator Ventilator Ventilator Mechanical Ventilator 07/06/19 07/06/19 07/06/19 07/06/19 21:00 21:51 22:00 23:00 Pulse 96 103 101 Resp 30 30 30 B/P (MAP) 110/56 (74) 112/57 (75) 106/54 (71) Pulse Ox 100 100 100 100 O2 Delivery Ventilator Ventilator Ventilator Ventilator 07/06/19 07/07/19 07/07/19 07/07/19 23:20 00:00 00:15 00:52 Temp 99.6 99.6 Pulse 98 Resp 30 B/P (MAP) 99/54 (69) Pulse Ox 100 100 100 O2 Delivery Ventilator Ventilator Mechanical Ventilator Ventilator 07/07/19 07/07/19 07/07/19 07/07/19 01:00 02:00 02:40 03:00 Pulse 114 114 96 Resp 30 30 30 B/P (MAP) 117/62 (80) 116/61 (79) 106/62 (77) Pulse Ox 100 100 100 100 O2 Delivery Ventilator Ventilator Ventilator Ventilator 07/07/19 07/07/19 07/07/19 07/07/19 04:00 04:04 05:00 05:20 Temp 99.0 99.0 Pulse 95 96 Resp 30 30 B/P (MAP) 108/59 (75) 124/59 (80) Pulse Ox 100 100 100 O2 Delivery Ventilator Mechanical Ventilator Ventilator Ventilator 07/07/19 07/07/19 07/07/19 07/07/19 06:00 07:00 07:15 08:00 Temp 98.4 98.4 Pulse 100 98 94 Resp 30 30 30 B/P (MAP) 81/46 (58) 96/55 (69) 112/56 (74) Pulse Ox 100 100 100 100 O2 Delivery Ventilator Ventilator Ventilator Ventilator 07/07/19 08:00 O2 Delivery Mechanical Ventilator Intake and Output 07/06/19 07/06/19 07/07/19 15:00 23:00 07:00 Intake Total 1131 ml 3047 ml 1280 ml Output Total 485 ml 1940 ml 970 ml Balance 646 ml 1107 ml 310 ml Nutrition Consultation Dietary Evaluation: Recommendations by RD: PPN/TPN Comments: REC PPN for short-term non-oral, non-enteral nutrition REC TPN per following when line available to better meet nutrition needs:250g dextrose, 105 g AA, 40 g lipids Expected Outcomes/Goals: Initiation of nutrition within 24 hrs of intubation Malnutrition Findings: Food and Nutrition Intake (Mod: <75% est energy req 7days Weight Status: Appropriate JONATHON ANN MD Jul 07, 2019 09:05
[2019-07-07] MEDS: SODIUM BICARBONATE VIAL 100 MEQ in IV DEXTROSE 5% 1,000 ML IV SCH (09:09)
[2019-07-07] MEDS ORDERED: levETIRAcetam 500 MG in IV DEXTROSE 5% 100ML 100 ML IV SCH (10:00)
--- NOTE | 2019-07-07 10:30 | NUR ---
Family has decided to stop all meds and ventilator support at this time and transition to comfort care. Dr. Chavira here on rounds notified and orders received.
[2019-07-07] MEDS: MORPHINE SULFATE 2 MG/ML VIAL. IV PRN (10:52)
--- NOTE | 2019-07-07 11:12 | PDOC ---
[employer] PROGRESS NOTE Chief Complaint Chief Complaint GI bleed Head injury Seizure History of Present Illness History of Present Illness 07/07/19 Pt seen and examined in ICU Pt has a history of stage 4 gastric cancer After discussing with the family the prognosis of the pt, they are ready for comfort care Charts and labs reviewed DW RN Vitals/I&O Vitals/I&O: Vital Signs Date Time Temp Pulse Resp B/P (MAP) Pulse Ox O2 Delivery O2 Flow Rate FiO2 07/07/19 09:20 100 Ventilator 07/07/19 09:00 98 24 118/60 (79) 07/07/19 07:00 98.4 98.4 I & O 07/06/19 07/06/19 07/07/19 15:00 23:00 07:00 Intake Total 1131 ml 3047 ml 1280 ml Output Total 485 ml 1940 ml 970 ml Balance 646 ml 1107 ml 310 ml Physical Exam General: Other (Sedated, ventilation ) Heart: Normal S1, Normal S2 Lungs: Other (dim in bases ) Extremities: No clubbing, No cyanosis Skin: No rashes Labs Labs: Laboratory Tests Test 07/06/19 11:36 07/06/19 16:20 07/06/19 18:01 07/06/19 20:20 Glucose (Fingerstick) 323 mg/dL (70-99) 245 mg/dL (70-99) White Blood Count 8.1 x10^3/uL (4.0-11.0) 7.8 x10^3/uL (4.0-11.0) Red Blood Count 2.54 x10^6/uL (4.30-5.70) 2.50 x10^6/uL (4.30-5.70) Hemoglobin 8.3 g/dL (13.0-17.5) 8.0 g/dL (13.0-17.5) Hematocrit 23.1 % (39.0-53.0) 22.6 % (39.0-53.0) Mean Corpuscular Volume 91 fL (79-100) 91 fL (79-100) Mean Corpuscular Hemoglobin 33 pg (25-35) 32 pg (25-35) Mean Corpuscular Hemoglobin Concent 36 g/dL (31-37) 35 g/dL (31-37) Red Cell Distribution Width 18.0 % (11.5-14.5) 18.6 % (11.5-14.5) Platelet Count 85 x10^3/uL (140-400) 84 x10^3/uL (140-400) Test 07/07/19 00:08 07/07/19 06:00 07/07/19 06:10 07/07/19 08:35 Glucose (Fingerstick) 208 mg/dL (70-99) 194 mg/dL (70-99) White Blood Count 8.1 x10^3/uL (4.0-11.0) Red Blood Count 2.44 x10^6/uL (4.30-5.70) Hemoglobin 7.7 g/dL (13.0-17.5) Hematocrit 22.2 % (39.0-53.0) Mean Corpuscular Volume 91 fL (79-100) Mean Corpuscular Hemoglobin 31 pg (25-35) Mean Corpuscular Hemoglobin Concent 35 g/dL (31-37) Red Cell Distribution Width 18.7 % (11.5-14.5) Platelet Count 92 x10^3/uL (140-400) Sodium Level 147 mmol/L (136-145) Potassium Level 3.5 mmol/L (3.5-5.1) Chloride Level 113 mmol/L (98-107) Carbon Dioxide Level 21 mmol/L (21-32) Anion Gap 13 (6-14) Blood Urea Nitrogen 46 mg/dL (8-26) Creatinine 1.9 mg/dL (0.7-1.3) Estimated GFR (Cockcroft-Gault) 34.5 Glucose Level 206 mg/dL (70-99) Calcium Level 7.6 mg/dL (8.5-10.1) O2 Saturation 98 % (92-99) Arterial Blood pH 7.50 (7.35-7.45) Arterial Blood pCO2 at Patient Temp 23 mmHg (35-46) Arterial Blood pO2 at Patient Temp 102 mmHg (65-108) Arterial Blood HCO3 18 mmol/L (21-28) Arterial Blood Base Excess -4 mmol/L (-3-3) FiO2 50 Review of Systems Review of Systems: Unable to obtain due to sedation Assessment and Plan Assessmemt and Plan Assessment Stage 4 gastric cancer Seizures [place] injury GI bleed Acute on chronic renal failure with azotemia Anemia Leukocytosis Hypotension Respiratory failure Plan Comfort care Appreciate neuro, pulm, oncology, GI, and palliative care consults Home meds O2 PRN Prognosis terminal Comment Review of Relevant I have reviewed the following items addison (where applicable) has been applied. Medications: Current Medications Medications (Trade) Dose Ordered Sig/Sunitha Route PRN Reason Start Time Stop Time Status Last Admin Dose Admin Insulin Human Lispro (HumaLOG) 0-7 UNITS Q6HRS SQ 07/06/19 12:00 07/07/19 00:10 Piperacillin Sod/ Tazobactam Sod 3.375 gm/Sodium Chloride 50 ml @ 100 mls/hr Q6HRS IV 07/06/19 14:00 07/07/19 06:03 Morphine Sulfate (Morphine Sulfate) 4 mg Q1HR PRN IV air hunger/comfort care 07/07/19 10:45 07/07/19 10:52 Lorazepam (Ativan Inj) 2 mg Q2HR PRN IVP ANXIETY / AGITATION 07/07/19 10:45 07/07/19 10:52 JOSE J HOLMAN III DO Jul 07, 2019 11:12
--- NOTE | 2019-07-07 11:17 | NUR ---
Pt extubated at 1110 per family request. Placed on 2 liters NC, OG tube removed as well.
--- NOTE | 2019-07-07 12:00 | NUR ---
Family has requested that no more labs, accuchecks, or antibiotics to be given. Just medications for comfort care.
--- NOTE | 2019-07-07 12:15 | PDOC ---
Provider Note Provider Note Patient on comfort care, signing off ANI GRANT MD Jul 07, 2019 12:15
[2019-07-08 03:00] VITALS: BP 98/51
[2019-07-08] MEDS: MORPHINE SULFATE 2 MG/ML VIAL. IV PRN ×7 (03:14→23:33)
[2019-07-08 07:00] VITALS: BP 126/64
--- NOTE | 2019-07-08 08:26 | PDOC ---
PULMONARY PROGRESS NOTES Subjective Pt. is now comfort care measure, Family at bedside PT. is on 2 Liters N/C for comfort Vitals Vital Signs Date Time Temp Pulse Resp B/P (MAP) Pulse Ox O2 Delivery O2 Flow Rate FiO2 07/08/19 03:14 100 Nasal Cannula 2.0 07/08/19 03:00 96 22 98/51 (67) 07/07/19 15:00 98.6 98.6 ROS: No Nausea, No Chest Pain, No Abdominal Pain, No Increase Cough General: Lethargic Lungs: Other (dim throughout) Cardiovascular: S1, S2 Abdomen: Soft Extremities: No Edema Skin: Other (pale) Impression intubated/sedated large amount of dark/bloody gastric secretions Labs Laboratory Tests Test 07/06/19 11:36 07/06/19 16:20 07/06/19 18:01 07/06/19 20:20 Glucose (Fingerstick) 323 mg/dL (70-99) 245 mg/dL (70-99) White Blood Count 8.1 x10^3/uL (4.0-11.0) 7.8 x10^3/uL (4.0-11.0) Red Blood Count 2.54 x10^6/uL (4.30-5.70) 2.50 x10^6/uL (4.30-5.70) Hemoglobin 8.3 g/dL (13.0-17.5) 8.0 g/dL (13.0-17.5) Hematocrit 23.1 % (39.0-53.0) 22.6 % (39.0-53.0) Mean Corpuscular Volume 91 fL (79-100) 91 fL (79-100) Mean Corpuscular Hemoglobin 33 pg (25-35) 32 pg (25-35) Mean Corpuscular Hemoglobin Concent 36 g/dL (31-37) 35 g/dL (31-37) Red Cell Distribution Width 18.0 % (11.5-14.5) 18.6 % (11.5-14.5) Platelet Count 85 x10^3/uL (140-400) 84 x10^3/uL (140-400) Test 07/07/19 00:08 07/07/19 06:00 07/07/19 06:10 07/07/19 08:35 Glucose (Fingerstick) 208 mg/dL (70-99) 194 mg/dL (70-99) White Blood Count 8.1 x10^3/uL (4.0-11.0) Red Blood Count 2.44 x10^6/uL (4.30-5.70) Hemoglobin 7.7 g/dL (13.0-17.5) Hematocrit 22.2 % (39.0-53.0) Mean Corpuscular Volume 91 fL (79-100) Mean Corpuscular Hemoglobin 31 pg (25-35) Mean Corpuscular Hemoglobin Concent 35 g/dL (31-37) Red Cell Distribution Width 18.7 % (11.5-14.5) Platelet Count 92 x10^3/uL (140-400) Sodium Level 147 mmol/L (136-145) Potassium Level 3.5 mmol/L (3.5-5.1) Chloride Level 113 mmol/L (98-107) Carbon Dioxide Level 21 mmol/L (21-32) Anion Gap 13 (6-14) Blood Urea Nitrogen 46 mg/dL (8-26) Creatinine 1.9 mg/dL (0.7-1.3) Estimated GFR (Cockcroft-Gault) 34.5 Glucose Level 206 mg/dL (70-99) Calcium Level 7.6 mg/dL (8.5-10.1) O2 Saturation 98 % (92-99) Arterial Blood pH 7.50 (7.35-7.45) Arterial Blood pCO2 at Patient Temp 23 mmHg (35-46) Arterial Blood pO2 at Patient Temp 102 mmHg (65-108) Arterial Blood HCO3 18 mmol/L (21-28) Arterial Blood Base Excess -4 mmol/L (-3-3) FiO2 50 Laboratory Tests Test 07/07/19 08:35 O2 Saturation 98 % (92-99) Arterial Blood pH 7.50 (7.35-7.45) Arterial Blood pCO2 at Patient Temp 23 mmHg (35-46) Arterial Blood pO2 at Patient Temp 102 mmHg (65-108) Arterial Blood HCO3 18 mmol/L (21-28) Arterial Blood Base Excess -4 mmol/L (-3-3) FiO2 50 Medications Active Scripts Medications Dose Route/Sig Max Daily Dose Days Date Category Xarelto (Rivaroxaban) 20 Mg Tablet 20 Mg PO [id number] 07/06/19 Reported Zantac (Ranitidine Hcl) 300 Mg Tablet 300 Mg PO DAILY 11/09/17 Reported Crestor (Rosuvastatin Calcium) 5 Mg Tablet 5 Mg PO HS 11/09/17 Reported Metformin Hcl 500 Mg Tablet 500 Mg PO BIDWMEALS 11/09/17 Reported Prilosec Otc (Omeprazole Magnesium) 20 Mg Tablet.dr 20 Mg PO DAILY 11/09/17 Reported Impression . 1. Acute respiratory failure. 2. Severe metabolic acidosis. 3. Hypovolemic shock. 4. Severe metabolic acidosis, suspect secondary to hypovolemic shock. 5. 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 6. Acute blood loss anemia. 7. Coagulopathy. 8. History of deep venous thrombosis. 9. Bilateral basilar infiltrates volume loss. 10. History of tobacco dependence. 11. PARDEEP Plan . 1. comfort care measures only:morphine/ativan PRN 2. Family support 3. May Move out of ICU 4. D/W family and RN we will sign off at this time, Thank you PROSPER ELAINE MD Jul 08, 2019 08:26
--- NOTE | 2019-07-08 09:04 | PDOC ---
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 HER-2/sue negative, EBV negative, PD-L1 negative, MMR stable. He was started on palliative chemotherapy with FOLFOX on 12/07/2017. He has been actively getting chemotherapy every 2 weeks. He has done well with chemotherapy with reasonably good response. His most recent chemotherapy was on 06/26/2019 which was cycle #33. His most recent PET scan was on 05/03/2019 which revealed mild tumor progression at the gastroesophageal junction. Unchanged mild ill-defined gastrohepatic soft tissue thickening and nodularity along the proximal lesser curvature of the stomach, compatible with tumor infiltration. He is now admitted with GI bleed and respiratory failure. There has been no improvement and he continues to bleed due to gastric cancer. Appreciate GI consult. I d/w dtr who is wanting to pursue comfort care and I agree. . Appreciate Dr Kaveh michaud and appreciate comfort care plan. He was extubated. 2. Gastrointestinal bleed. Appreciate GI consultation. No role for endoscopy in view of malignancy per Dr. Barajas and I agree. s/p FFP 2 units and vitamin K 07/06/19. His last dose of Xarelto was on 07/05/2019. 3. Coagulopathy due to Xarelto. I discussed with registered nurse. s/p 2 units of FFP and vitamin K 07/06/19. 4. History of deep venous thrombosis, right lower extremity on 06/16/2018 s/p Xarelto. Comment Review of Relevant I have reviewed the following items addison (where applicable) has been applied. Labs Laboratory Tests Test 07/06/19 11:36 07/06/19 16:20 07/06/19 18:01 07/06/19 20:20 Glucose (Fingerstick) 323 mg/dL (70-99) 245 mg/dL (70-99) White Blood Count 8.1 x10^3/uL (4.0-11.0) 7.8 x10^3/uL (4.0-11.0) Red Blood Count 2.54 x10^6/uL (4.30-5.70) 2.50 x10^6/uL (4.30-5.70) Hemoglobin 8.3 g/dL (13.0-17.5) 8.0 g/dL (13.0-17.5) Hematocrit 23.1 % (39.0-53.0) 22.6 % (39.0-53.0) Mean Corpuscular Volume 91 fL (79-100) 91 fL (79-100) Mean Corpuscular Hemoglobin 33 pg (25-35) 32 pg (25-35) Mean Corpuscular Hemoglobin Concent 36 g/dL (31-37) 35 g/dL (31-37) Red Cell Distribution Width 18.0 % (11.5-14.5) 18.6 % (11.5-14.5) Platelet Count 85 x10^3/uL (140-400) 84 x10^3/uL (140-400) Test 07/07/19 00:08 07/07/19 06:00 07/07/19 06:10 07/07/19 08:35 Glucose (Fingerstick) 208 mg/dL (70-99) 194 mg/dL (70-99) White Blood Count 8.1 x10^3/uL (4.0-11.0) Red Blood Count 2.44 x10^6/uL (4.30-5.70) Hemoglobin 7.7 g/dL (13.0-17.5) Hematocrit 22.2 % (39.0-53.0) Mean Corpuscular Volume 91 fL (79-100) Mean Corpuscular Hemoglobin 31 pg (25-35) Mean Corpuscular Hemoglobin Concent 35 g/dL (31-37) Red Cell Distribution Width 18.7 % (11.5-14.5) Platelet Count 92 x10^3/uL (140-400) Sodium Level 147 mmol/L (136-145) Potassium Level 3.5 mmol/L (3.5-5.1) Chloride Level 113 mmol/L (98-107) Carbon Dioxide Level 21 mmol/L (21-32) Anion Gap 13 (6-14) Blood Urea Nitrogen 46 mg/dL (8-26) Creatinine 1.9 mg/dL (0.7-1.3) Estimated GFR (Cockcroft-Gault) 34.5 Glucose Level 206 mg/dL (70-99) Calcium Level 7.6 mg/dL (8.5-10.1) O2 Saturation 98 % (92-99) Arterial Blood pH 7.50 (7.35-7.45) Arterial Blood pCO2 at Patient Temp 23 mmHg (35-46) Arterial Blood pO2 at Patient Temp 102 mmHg (65-108) Arterial Blood HCO3 18 mmol/L (21-28) Arterial Blood Base Excess -4 mmol/L (-3-3) FiO2 50 Medications Current Medications Pantoprazole Sodium 80 mg/ Sodium Chloride 100 ml @ 10 mls/hr Q10H IV Last administered on 07/07/19at 06:03; Start 07/06/19 at 00:00 Lorazepam (Ativan Inj) 2 mg PRN Q4HRS PRN IVP ANXIETY / AGITATION Last administered on 07/06/19at 00:59; Start 07/06/19 at 01:00; Stop 07/07/19 at 08:46; Status DC Fentanyl Citrate (Fentanyl 2ml Vial) 50 mcg PRN Q2HR PRN IVP SEVERE PAIN 7-10; Start 07/06/19 at 01:00; Stop 07/07/19 at 08:46; Status DC Norepinephrine Bitartrate 250 ml @ 16.159 mls/ hr CONT PRN IV SEE I/O RECORD Last administered on 07/07/19at 00:09; Start 07/06/19 at 01:00; Stop 07/07/19 at 08:46; Status DC Etomidate (Amidate) 20 mg STK-MED ONCE IV ; Start 07/06/19 at 01:19; Stop 07/06/19 at 01:19; Status DC Vecuronium [place] (Norcuron Bolus) 10 mg STK-MED ONCE IV ; Start 07/06/19 at 01:19; Stop 07/06/19 at 01:19; Status DC Midazolam HCl (Versed) 5 mg STK-MED ONCE .ROUTE ; Start 07/06/19 at 01:19; Stop 07/06/19 at 01:19; Status DC Midazolam HCl 100 ml @ 5 mls/hr CONT PRN IV SEE I/O RECORD Last administered on 07/07/19at 04:27; Start 07/06/19 at 01:30 Sodium Bicarbonate (Sodium Bicarb Adult 8.4% Syr) 100 meq 1X ONCE IV Last administered on 07/06/19at 02:22; Start 07/06/19 at 02:30; Stop 07/06/19 at 02:31; Status DC Sodium Bicarbonate 100 meq/Dextrose 1,100 ml @ 75 mls/hr [id number] IV Last administered on 07/07/19at 09:09; Start 07/06/19 at 02:30 Phenylephrine HCl 20 mg/Sodium Chloride 252 ml @ 32.508 mls/ hr CONT PRN IV SEE I/O RECORD Last administered on 07/06/19at 03:30; Start 07/06/19 at 03:15; Stop 07/07/19 at 08:46; Status DC Phytonadione (Vitamin K Ampule) 10 mg 1X ONCE SQ Last administered on 07/06/19at 09:49; Start 07/06/19 at 09:30; Stop 07/06/19 at 09:31; Status DC Dextrose (Dextrose 50%-Water Syringe) 12.5 gm PRN Q15MIN PRN IV SEE COMMENTS; Start 07/06/19 at 10:45 Insulin Human Lispro (HumaLOG) 0-7 UNITS Q6HRS SQ Last administered on 07/07/19at 00:10; Start 07/06/19 at 12:00 Piperacillin Sod/ Tazobactam Sod (Zosyn Per Pharmacy) 1 each PRN DAILY PRN MC SEE COMMENTS; Start 07/06/19 at 13:15 Piperacillin Sod/ Tazobactam Sod 3.375 gm/Sodium Chloride 50 ml @ 100 mls/hr Q6HRS IV Last administered on 07/07/19at 06:03; Start 07/06/19 at 14:00 Levetiracetam 500 mg/Dextrose 105 ml @ 420 mls/hr Q12HR IV ; Start 07/07/19 at 10:00 Morphine Sulfate (Morphine Sulfate) 2 mg Q1HR PRN IV air hunger/comfort care Last administered on 07/08/19at 03:14; Start 07/07/19 at 10:45 Morphine Sulfate (Morphine Sulfate) 4 mg Q1HR PRN IV air hunger/comfort care Last administered on 07/08/19at 07:52; Start 07/07/19 at 10:45 Lorazepam (Ativan Inj) 2 mg Q2HR PRN IVP ANXIETY / AGITATION Last administered on 07/08/19at 07:51; Start 07/07/19 at 10:45 Active Scripts Active Reported Xarelto (Rivaroxaban) 20 Mg Tablet 20 Mg PO DAILYWSUP Zantac (Ranitidine Hcl) 300 Mg Tablet 300 Mg PO DAILY Crestor (Rosuvastatin Calcium) 5 Mg Tablet 5 Mg PO HS Metformin Hcl 500 Mg Tablet 500 Mg PO BIDWMEALS Prilosec Otc (Omeprazole Magnesium) 20 Mg Tablet.dr 20 Mg PO DAILY Vitals/I & O Vital Sign - Last 24 Hours 07/07/19 07/07/19 07/07/19 07/07/19 09:20 10:00 11:00 11:10 Pulse 96 98 Resp 22 23 B/P (MAP) 134/62 (86) 75/43 (54) Pulse Ox 100 100 100 O2 Delivery Ventilator Ventilator Ventilator Nasal Cannula O2 Flow Rate 2.0 07/07/19 07/07/19 07/08/19 07/08/19 15:00 20:00 03:00 03:14 Temp 98.6 98.6 Pulse 101 96 Resp 20 22 B/P (MAP) 97/52 (67) 98/51 (67) Pulse Ox 100 100 100 O2 Delivery Nasal Cannula Nasal Cannula Ventilator Nasal Cannula O2 Flow Rate 2.0 2.0 07/08/19 07:00 Temp 98.1 98.1 Pulse 96 Resp 27 B/P (MAP) 126/64 (84) Pulse Ox 98 O2 Delivery Nasal Cannula O2 Flow Rate 2.0 Intake and Output 07/07/19 07/07/19 07/08/19 15:00 23:00 07:00 Output Total 150 ml 350 ml 1450 ml Balance -150 ml -350 ml -1450 ml Nutrition Consultation Dietary Evaluation: Recommendations by RD: PPN/TPN Comments: REC PPN for short-term non-oral, non-enteral nutrition REC TPN per following when line available to better meet nutrition needs:250g dextrose, 105 g AA, 40 g lipids Expected Outcomes/Goals: Initiation of nutrition within 24 hrs of intubation Malnutrition Findings: Food and Nutrition Intake (Mod: <75% est energy req 7days Weight Status: Appropriate JONATHON ANN MD Jul 08, 2019 09:04
--- NOTE | 2019-07-08 10:05 | PDOC ---
[employer] PROGRESS NOTE Chief Complaint Chief Complaint GI bleed Head injury Seizure History of Present Illness History of Present Illness 07/08/19 Pt seen and examined in the ICU Pt was placed on comfort care Pt extubated On NC 2L for comfort Hx of stage 4 gastric cancer Charts and labs reviewed D/w RN 07/07/19 Pt seen and examined in ICU Pt has a history of stage 4 gastric cancer After discussing with the family the prognosis of the pt, they are ready for comfort care Charts and labs reviewed DW RN Vitals/I&O Vitals/I&O: Vital Signs Date Time Temp Pulse Resp B/P (MAP) Pulse Ox O2 Delivery O2 Flow Rate FiO2 07/08/19 08:00 Nasal Cannula 2.0 07/08/19 07:00 98.1 96 27 126/64 (84) 98 98.1 I & O 07/07/19 07/07/19 07/08/19 15:00 23:00 07:00 Output Total 150 ml 350 ml 1450 ml Balance -150 ml -350 ml -1450 ml Physical Exam Physical Exam: Pinpoint pupils General: No acute distress Heart: Normal S1, Normal S2 Lungs: Other (dim throughout) Extremities: No clubbing, No cyanosis Skin: No rashes Review of Systems Review of Systems: Unable to obtain ROS due to unconscious state Assessment and Plan Assessmemt and Plan Assessment Stage 4 gastric cancer Seizures [place] injury GI bleed Acute on chronic renal failure with azotemia Anemia Leukocytosis Hypotension Respiratory failure Plan Comfort care Transfer floors Appreciate neuro, pulm, oncology, GI, and palliative care consults Home meds O2 PRN Prognosis terminal DNR Comment Review of Relevant I have reviewed the following items addison (where applicable) has been applied. Medications: Current Medications Medications (Trade) Dose Ordered Sig/Sunitha Route PRN Reason Start Time Stop Time Status Last Admin Dose Admin Morphine Sulfate (Morphine Sulfate) 2 mg Q1HR PRN IV air hunger/comfort care 07/07/19 10:45 07/08/19 03:14 Morphine Sulfate (Morphine Sulfate) 4 mg Q1HR PRN IV air hunger/comfort care 07/07/19 10:45 07/08/19 07:52 Lorazepam (Ativan Inj) 2 mg Q2HR PRN IVP ANXIETY / AGITATION 07/07/19 10:45 07/08/19 07:51 JOSE J HOLMAN III DO Jul 08, 2019 10:05
[2019-07-08] MEDS: PANTOPRAZOLE SODIUM IV DRIP 80 MG in IV NORMAL SALINE 100ML 100 ML IV SCH (12:00)
[2019-07-08] MEDS: PIPERACILLIN/TAZOBACTAM 3.375 GM in IV NORMAL SALINE 50ML 50 ML IV SCH (12:00)
[2019-07-08] MEDS: INSULIN LISPRO 300 UNITS/3 ML VIAL. SQ SCH (12:00)
[2019-07-08 17:28] VITALS: BP 106/52
[2019-07-08 19:00] VITALS: BP 108/55
[2019-07-09 07:00] VITALS: BP 124/48
[2019-07-09] MEDS: MORPHINE SULFATE 2 MG/ML VIAL. IV PRN ×6 (07:10→19:00)
--- NOTE | 2019-07-09 08:26 | RAD ---
PORTABLE CHEST 1V History: Respiratory failure Comparison: 07/07/2019 Findings: Single view of the chest is submitted. Previously seen endotracheal tube and enteric catheter have been removed. There is again left subclavian catheter with the tip in the inferior aspect of the superior vena cava. Cardiac silhouette appears more prominent on this exam although probably due to differences in technique and positioning. No pneumothorax is identified. There is persistent mild left base airspace opacity, slightly improved aeration of the left lung base. There is also mild right base atelectasis. Trace pleural effusions are not excluded. Impression: 1. There is persistent mild left base opacity which may be due to atelectasis or infiltrate, mild right base atelectasis also present. Previously seen endotracheal tube and enteric catheter have been removed. Electronically signed by: Evangelista Arellano MD (07/09/2019 8:22 AM) [id number]
--- NOTE | 2019-07-09 09:12 | PDOC ---
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 Severe metabolic acidosis. Hypovolemic shock. Acute blood loss anemia. Coagulopathy. History of deep venous thrombosis. Bilateral basilar infiltrates volume loss History of tobacco dependence PARDEEP - likely vasomotor nephropathy History of Present Illness History of Present Illness Mr Osborne is seen bedside with his and son. He has been sleeping and breathing more comfortably. After long discussion family wishes for a discharge home with hospice care, but would like to further discuss their options. They wish for comfort care in the hospital at this time. 07/08/19 Pt seen and examined in the ICU Pt was placed on comfort care Pt extubated On NC 2L for comfort Hx of stage 4 gastric cancer Charts and labs reviewed D/w RN 07/07/19 Pt seen and examined in ICU Pt has a history of stage 4 gastric cancer After discussing with the family the prognosis of the pt, they are ready for comfort care Charts and labs reviewed JANUSZ RN Vitals Vitals Vital Signs Date Time Temp Pulse Resp B/P (MAP) Pulse Ox O2 Delivery O2 Flow Rate FiO2 07/09/19 07:00 97.5 97 16 124/48 (73) 91 Nasal Cannula 2.0 97.5 Physical Exam Physical Exam Pinpoint pupils General: No acute distress Heart: Normal S1, Normal S2 Lungs: Other (dim throughout) Extremities: No clubbing, No cyanosis Skin: No rashes Comment Review of Relevant I have reviewed the following items addison (where applicable) has been applied. Medications Current Medications Pantoprazole Sodium 80 mg/ Sodium Chloride 100 ml @ 10 mls/hr Q10H IV Last administered on 07/07/19at 06:03; Start 07/06/19 at 00:00; Stop 07/08/19 at 14:21; Status DC Lorazepam (Ativan Inj) 2 mg PRN Q4HRS PRN IVP ANXIETY / AGITATION Last administered on 07/06/19at 00:59; Start 07/06/19 at 01:00; Stop 07/07/19 at 08:46; Status DC Fentanyl Citrate (Fentanyl 2ml Vial) 50 mcg PRN Q2HR PRN IVP SEVERE PAIN 7-10; Start 07/06/19 at 01:00; Stop 07/07/19 at 08:46; Status DC Norepinephrine Bitartrate 250 ml @ 16.159 mls/ hr CONT PRN IV SEE I/O RECORD Last administered on 07/07/19at 00:09; Start 07/06/19 at 01:00; Stop 07/07/19 at 08:46; Status DC Etomidate (Amidate) 20 mg STK-MED ONCE IV ; Start 07/06/19 at 01:19; Stop 07/06/19 at 01:19; Status DC Vecuronium [place] (Norcuron Bolus) 10 mg STK-MED ONCE IV ; Start 07/06/19 at 01:19; Stop 07/06/19 at 01:19; Status DC Midazolam HCl (Versed) 5 mg STK-MED ONCE .ROUTE ; Start 07/06/19 at 01:19; Stop 07/06/19 at :19; Status DC Midazolam HCl 100 ml @ 5 mls/hr CONT PRN IV SEE I/O RECORD Last administered on 07/07/19at 04:27; Start 07/06/19 at 01:30; Stop 07/08/19 at 14:21; Status DC Sodium Bicarbonate (Sodium Bicarb Adult 8.4% Syr) 100 meq 1X ONCE IV Last administered on 07/06/19at 02:22; Start 07/06/19 at 02:30; Stop 07/06/19 at 02:31; Status DC Sodium Bicarbonate 100 meq/Dextrose 1,100 ml @ 75 mls/hr [id number] IV Last administered on 07/07/19at 09:09; Start 07/06/19 at 02:30; Stop 07/08/19 at 14:21; Status DC Phenylephrine HCl 20 mg/Sodium Chloride 252 ml @ 32.508 mls/ hr CONT PRN IV SEE I/O RECORD Last administered on 07/06/19at 03:30; Start 07/06/19 at 03:15; Stop 07/07/19 at 08:46; Status DC Phytonadione (Vitamin K Ampule) 10 mg 1X ONCE SQ Last administered on 07/06/19at 09:49; Start 07/06/19 at 09:30; Stop 07/06/19 at 09:31; Status DC Dextrose (Dextrose 50%-Water Syringe) 12.5 gm PRN Q15MIN PRN IV SEE COMMENTS; Start 07/06/19 at 10:45; Stop 07/08/19 at 14:21; Status DC Insulin Human Lispro (HumaLOG) 0-7 UNITS Q6HRS SQ Last administered on 07/07/19at 00:10; Start 07/06/19 at 12:00; Stop 07/08/19 at 14:21; Status DC Piperacillin Sod/ Tazobactam Sod (Zosyn Per Pharmacy) 1 each PRN DAILY PRN MC SEE COMMENTS; Start 07/06/19 at 13:15; Stop 07/08/19 at 14:21; Status DC Piperacillin Sod/ Tazobactam Sod 3.375 gm/Sodium Chloride 50 ml @ 100 mls/hr Q6HRS IV Last administered on 07/07/19at 06:03; Start 07/06/19 at 14:00; Stop 07/08/19 at 14:21; Status DC Levetiracetam 500 mg/Dextrose 105 ml @ 420 mls/hr Q12HR IV ; Start 07/07/19 at 10:00; Stop 07/08/19 at 14:21; Status DC Morphine Sulfate (Morphine Sulfate) 2 mg Q1HR PRN IV air hunger/comfort care Last administered on 07/09/19at 08:21; Start 07/07/19 at 10:45 Morphine Sulfate (Morphine Sulfate) 4 mg Q1HR PRN IV air hunger/comfort care Last administered on 07/08/19at 21:54; Start 07/07/19 at 10:45 Lorazepam (Ativan Inj) 2 mg Q2HR PRN IVP ANXIETY / AGITATION Last administered on 07/09/19at 07:10; Start 07/07/19 at 10:45 Active Scripts Active Reported Xarelto (Rivaroxaban) 20 Mg Tablet 20 Mg PO DAILYWSUP Zantac (Ranitidine Hcl) 300 Mg Tablet 300 Mg PO DAILY Crestor (Rosuvastatin Calcium) 5 Mg Tablet 5 Mg PO HS Metformin Hcl 500 Mg Tablet 500 Mg PO BIDWMEALS Prilosec Otc (Omeprazole Magnesium) 20 Mg Tablet.dr 20 Mg PO DAILY Vitals/I & O Vital Sign - Last 24 Hours 07/08/19 07/08/19 07/08/19 07/08/19 11:00 11:06 15:00 17:02 Pulse 96 93 Resp 12 15 11 Pulse Ox 99 98 95 O2 Delivery Nasal Cannula Nasal Cannula Nasal Cannula Nasal Cannula O2 Flow Rate 2.0 2.0 2.0 2.0 07/08/19 07/08/19 07/08/19 07/08/19 17:28 19:00 19:16 20:00 Temp 97.8 98.4 97.8 98.4 Pulse 57 101 Resp 16 20 B/P (MAP) 106/52 (70) 108/55 (72) Pulse Ox 94 95 O2 Delivery Nasal Cannula Nasal Cannula Nasal Cannula Nasal Cannula O2 Flow Rate 2.0 2.0 2.0 2.0 07/08/19 07/08/19 07/08/19 07/09/19 21:54 22:29 23:33 00:03 O2 Delivery Nasal Cannula Nasal Cannula Nasal Cannula Nasal Cannula O2 Flow Rate 2.0 2.0 2.0 2.0 07/09/19 07:00 Temp 97.5 97.5 Pulse 97 Resp 16 B/P (MAP) 124/48 (73) Pulse Ox 91 O2 Delivery Nasal Cannula O2 Flow Rate 2.0 l Intake and Output 07/08/19 07/08/19 07/09/19 14:59 22:59 06:59 Intake Total 0 ml Output Total 375 ml Balance -375 ml 0 ml Nutrition Consultation Dietary Evaluation: Recommendations by RD: PPN/TPN Comments: REC PPN for short-term non-oral, non-enteral nutrition REC TPN per following when line available to better meet nutrition needs:250g dextrose, 105 g AA, 40 g lipids Expected Outcomes/Goals: Initiation of nutrition within 24 hrs of intubation Malnutrition Findings: Food and Nutrition Intake (Mod: <75% est energy req 7days Weight Status: Appropriate MERARY RODRÍGUEZ MD Jul 09, 2019 09:12
[2019-07-09] MEDS ORDERED: LORazepam INTENSOL 2 MG/ML ORAL.CONC SL PRN (09:15)
--- NOTE | 2019-07-09 10:02 | PDOC ---
Objective: Objective: D/w nurse - pt is comfort care, has melena. Vital Signs: Vital Signs Date Time Temp Pulse Resp B/P (MAP) Pulse Ox O2 Delivery O2 Flow Rate FiO2 07/09/19 07:00 97.5 97 16 124/48 (73) 91 Nasal Cannula 2.0 97.5 Imaging: CXR 07/09 Impression: 1. There is persistent mild left base opacity which may be due to atelectasis or infiltrate, mild right base atelectasis also present. Previously seen end otracheal tube and enteric catheter have been removed. PE: GEN: sleeping LUNGS: NC A/P: Stage 4 poorly differentiated carcinoma of stomach extending to distal esophagus w/ signet ring cell morphology w/ peritoneal mets Resp failure Melena Anemia, coagulopathy - Xarelto stopped -- Staff reports plans for comfort care per family request - GI will sign off. ANDREW SANCHEZ Jul 09, 2019 10:02
--- NOTE | 2019-07-09 10:09 | PDOC ---
PULMONARY PROGRESS NOTES Subjective Pt. is now comfort care measure, Family at bedside PT. is on 2 Liters N/C for comfort Vitals Vital Signs Date Time Temp Pulse Resp B/P (MAP) Pulse Ox O2 Delivery O2 Flow Rate FiO2 07/09/19 07:00 97.5 97 16 124/48 (73) 91 Nasal Cannula 2.0 97.5 ROS: No Nausea, No Chest Pain, No Abdominal Pain, No Increase Cough General: Lethargic Lungs: Other (dim throughout) Cardiovascular: S1, S2 Abdomen: Soft Extremities: No Edema Skin: Other (pale) Impression intubated/sedated large amount of dark/bloody gastric secretions Medications Active Scripts Medications Dose Route/Sig Max Daily Dose Days Date Category Xarelto (Rivaroxaban) 20 Mg Tablet 20 Mg PO DAILYWSUP 07/06/19 Reported Zantac (Ranitidine Hcl) 300 Mg Tablet 300 Mg PO DAILY 11/09/17 Reported Crestor (Rosuvastatin Calcium) 5 Mg Tablet 5 Mg PO HS 11/09/17 Reported Metformin Hcl 500 Mg Tablet 500 Mg PO BIDWMEALS 11/09/17 Reported Prilosec Otc (Omeprazole Magnesium) 20 Mg Tablet.dr 20 Mg PO DAILY 11/09/17 Reported Impression . 1. Acute respiratory failure. 2. Severe metabolic acidosis. 3. Hypovolemic shock. 4. Severe metabolic acidosis, suspect secondary to hypovolemic shock. 5. 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 6. Acute blood loss anemia. 7. Coagulopathy. 8. History of deep venous thrombosis. 9. Bilateral basilar infiltrates volume loss. 10. History of tobacco dependence. 11. PARDEEP Plan . 1. comfort care measures only:morphine/ativan PRN 2. Family support 3. May Move out of ICU 4. D/W family and RN we will sign off at this time, Thank you PROSPER ELAINE MD Jul 09, 2019 10:09
[2019-07-09] MEDS: ATROPINE 1% OPHTH SOLUTION 5ML BOTTLE. SL PRN (10:15)
--- NOTE | 2019-07-09 14:52 | NUR ---
SW following pt. Discussed with PC and family would like take pt home today with hospice. [facility] at hospice intake reported they will not be able to admit pt tonight as DME will not be able to delivered past 1800 and they do not have an admission nurse available past 1700. [facility] will reach out to family regarding DME delivery and tentative admission time tomorrow at 1100. Plan 1. KP phoned and faxed referral to hospice, phone: [phone], fax: [phone]. Pt acceptance and admission pending.
[2019-07-09] MEDS ORDERED: ATRO2DRO3 SL (14:58)
[2019-07-09] MEDS ORDERED: LORA2ORA7 SL (14:58)
[2019-07-09] MEDS ORDERED: MORP100S3 SL (14:58)
--- NOTE | 2019-07-09 15:01 | SNU/HH DC ---
DISCHARGE ORDERS DISCHARGE INFORMATION: DISCHARGE DATE: Jul 09, 2019 FINAL DIAGNOSIS Stage IV stomach cancer CONDITION ON DISCHARGE: Guarded CODE STATUS: Code Status: DNR/DNI HOSPICE: HOSPICE: Yes HOSPICE EVAL & TREAT: Yes POST DISCHARGE ORDERS: ACTIVITY ORDERS: No restrictions WEIGHT BEARING STATUS: No restrictions DIET AFTER DISCHARGE: Regular CHECKS AFTER DISCHARGE: CHECKS AFTER DISCHARGE: Check blood press - daily DISCHARGE MEDICATIONS: Home Meds Active Scripts Atropine Sulfate (Atropine Sulfate) 2 Ml Drops, 1 DROP SL PRN Q2HR PRN for SECRETIONS for 30 Days, #1 EACH Prov:MERARY RODRÍGUEZ MD 07/09/19 Lorazepam (LORAZEPAM INTENSOL) 2 Mg/1 Ml Oral.conc, 2 MG SL PRN Q6HRS PRN for ANXIETY / AGITATION for 30 Days, #30 ML Prov:MERARY RODRÍGUEZ MD 07/09/19 Morphine Sulfate (MORPHINE SULFATE) 100 Mg/5 Ml Solution, 5 MG SL PRN Q3HRS PRN for PAIN for 30 Days, #30 ML Prov:MERARY RODRÍGUEZ MD 07/09/19 Discontinued Reported Medications Rivaroxaban (XARELTO) 20 Mg Tablet, 20 MG PO DAILYWSUP, TAB 07/06/19 Ranitidine Hcl (ZANTAC) 300 Mg Tablet, 300 MG PO DAILY 11/09/17 Rosuvastatin Calcium (CRESTOR) 5 Mg Tablet, 5 MG PO HS for FOR CHOLESTEROL 11/09/17 Metformin Hcl (METFORMIN HCL) 500 Mg Tablet, 500 MG PO BIDWMEALS for ANTI- DIABETIC 11/09/17 Omeprazole Magnesium (PRILOSEC OTC) 20 Mg Tablet.dr, 20 MG PO DAILY 11/09/17 Discontinued Scripts Rivaroxaban (XARELTO) 15 Mg Tablet, 15 MG PO BID, #28 TAB Prov:TRAVIS GAMBLE MANAGER OF TRAINING 06/16/18 MERARY RODRÍGUEZ MD Jul 09, 2019 15:01
[2019-07-09 19:00] VITALS: BP 96/53
--- NOTE | 2019-07-09 19:04 | PDOC2 ---
PALLIATIVE CARE Palliative Care Note Palliative Care Consult requested by Dr. Chavira to assist with EOL/Comfort care. Medical Assessment per medical record;. 1. Acute respiratory failure. 2. Severe metabolic acidosis. 3. Hypovolemic shock. 4. Severe metabolic acidosis, suspect secondary to hypovolemic shock. 5. 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 6. Acute blood loss anemia. 7. Coagulopathy. 8. History of deep venous thrombosis. 9. Bilateral basilar infiltrates volume loss. 10. History of tobacco dependence. 11. PARDEEP Patient was extubated and transitioned to Comfort Care Unresponsive. Met with daughterSarita, Cherelle, and son Austin Family would like patient to go home with Hospice. DME; Bed and oxygen. Spoke with Piotr GOODRICH who will assist with plans. After discussion with Hospice patient's equipment can be delivered this evening and home tomorrow with Hospice. Family updated. Outside the Hospital DNR/DNI form signed. RHONDA FOLEY Jul 09, 2019 19:04
[2019-07-09] MEDS: MORPHINE SULFATE 20 MG/ML CONC SOLUTION. SL PRN (22:11)
[2019-07-10] MEDS: MORPHINE SULFATE 20 MG/ML CONC SOLUTION. SL PRN (01:31)
[2019-07-10] MEDS: ATROPINE 1% OPHTH SOLUTION 5ML BOTTLE. SL PRN ×2 (01:39→03:43)
[2019-07-10] MEDS: MORPHINE SULFATE 2 MG/ML VIAL. IV PRN ×4 (03:14→12:32)
[2019-07-10 07:00] VITALS: BP 105/47
--- NOTE | 2019-07-10 08:23 | PDOC3 ---
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 Severe metabolic acidosis. Hypovolemic shock. Acute blood loss anemia. Coagulopathy. History of deep venous thrombosis. Bilateral basilar infiltrates volume loss History of tobacco dependence PARDEEP - likely vasomotor nephropathy Brief Hospital Course Allergies Allergies Coded Allergies Type Severity Reaction Last Updated Verified No Known Drug Allergies 11/09/17 No Vital Signs Vital Signs Date Time Temp Pulse Resp B/P (MAP) Pulse Ox O2 Delivery O2 Flow Rate FiO2 07/10/19 07:48 91 Nasal Cannula 2.0 07/10/19 07:00 99.6 91 16 105/47 (66) 99.6 Brief Hospital Course Mr. Osborne is a 78 old [sex] with stage 4 gastric cancer, family just wants hospice which is rather appropriate so hospice today Dr Richardson has done the meds... dc < 30 Discharge Information Condition at Discharge: Improved, Stable Disposition/Orders: D/C to Home w/ Hospice, Other (snu with hosice or home with hospice) Scheduled PRN Atropine Sulfate (Atropine Sulfate) 2 Ml Drops, 1 DROP SL PRN Q2HR PRN for SE CRETIONS for 30 Days, #1 Prescribed by: MERARY RICHARDSON MD on 07/09/19 1458 Lorazepam (Lorazepam Intensol) 2 Mg/1 Ml Oral.conc, 2 MG SL PRN Q6HRS PRN for ANXIETY / AGITATION for 30 Days, #30 Prescribed by: MERARY RICHARDSON MD on 07/09/19 1458 Morphine Sulfate (Morphine Sulfate) 100 Mg/5 Ml Solution, 5 MG SL PRN Q3HRS PRN for PAIN for 30 Days, #30 Prescribed by: MERARY RICHARDSON MD on 07/09/19 1458 Discontinued Medications Metformin Hcl (Metformin Hcl) 500 Mg Tablet, 500 MG PO BIDWMEALS for ANTI- DIABETIC, (Reported) Entered as Reported by: ANNA ALLAN on 11/09/17 1224 Omeprazole Magnesium (Prilosec Otc) 20 Mg Tablet.dr, 20 MG PO DAILY, (Reported) Entered as Reported by: ANNA ALLAN on 11/09/17 1224 Ranitidine Hcl (Zantac) 300 Mg Tablet, 300 MG PO DAILY, (Reported) Entered as Reported by: ANNA ALLAN on 11/09/17 1224 Rivaroxaban (Xarelto) 15 Mg Tablet, 15 MG PO BID, #28 Discontinued Reason: D/C Prescribed by: Oriana Valiente APRN on 06/16/18 1351 Last Action: Discontinued on 07/06/19740 by HANNAH CERNA RPH Rivaroxaban (Xarelto) 20 Mg Tablet, 20 MG PO DAILYWSUP, (Reported) Entered as Reported by: HANNAH CERNA RPH on 07/06/19740 Last Action: New Order on 07/06/19740 by HANNAH CERNA RP Rosuvastatin Calcium (Crestor) 5 Mg Tablet, 5 MG PO HS for FOR CHOLESTEROL, (Reported) Entered as Reported by: ANNA ALLAN on 11/09/17 1224 JOES LUIS ROSAS MD Jul 10, 2019 08:23
--- NOTE | 2019-07-10 08:49 | RAD ---
PORTABLE CHEST 1V INDICATION: Respiratory failure. COMPARISON STUDY: 07/09/2019. FINDINGS: Left Port-A-Cath. Lungs: Low lung volume. Stable mild left basilar opacities. The tracheobronchial tree and hilar structures are normal. Pleura: Trace left pleural effusion. Heart and Mediastinum: Stable cardiomediastinal silhouette and great vessels. IMPRESSION: Stable mild left basilar opacities and trace left pleural effusion. Electronically signed by: Evangelista Cruz MD (07/10/2019 8:46 AM) [facility]
[2019-07-10] MEDS ORDERED: HEPARIN PF 500 UNIT/5 ML DISP.SYRIN. IVP ONE (12:15)
--- NOTE | 2019-07-10 12:55 | NUR ---
Pt has been accepted by hospice and DME was delivered yesterday. Updated orders faxed to hospice and packet on chart. SW arranged transport via [facility] at 1230. A nurse from [facility] will meet pt at home at 1300. Pt's son and pt's notified, agreeable.
--- NOTE | 2019-07-10 13:16 | NUR ---
pt being discharged home with hospice services. Port dc'd and heparin flushed. [facility] here to transport pt. pt had rectal tube, kimball catheter, 2L NC upon dc. accompanied by and daughter.
== END 2019-07-10 13:00 | disposition hospice, home (50) | DRG 208 ==
LOC: 1 WEST ICU 23:11 → 5 SOUTH 07-08 17:27
PROVIDERS: ADMIT Internal Medicine; ATTEND Internal Medicine
PROC: 5A1945Z Respiratory Ventilation, 24-96 Consecutive Hours (ICD-10-PCS; principal; 2019-07-05)
PROC: 0BH17EZ Insertion of Endotracheal Airway into Trachea, Via Natural or Artificial Opening (ICD-10-PCS; 2019-07-05)
PROC: 30233K1 Transfusion of Nonautologous Frozen Plasma into Peripheral Vein, Percutaneous Approach (ICD-10-PCS; 2019-07-06)
PROC: 30233N1 Transfusion of Nonautologous Red Blood Cells into Peripheral Vein, Percutaneous Approach (ICD-10-PCS; 2019-07-06)
DX: J96.00 Acute respiratory failure, unspecified whether with hypoxia or hypercapnia (principal); R57.1 Hypovolemic shock; G93.41 Metabolic encephalopathy; N17.0 Acute kidney failure with tubular necrosis; K92.2 Gastrointestinal hemorrhage, unspecified; D62 Acute posthemorrhagic anemia; C16.0 Malignant neoplasm of cardia; C78.6 Secondary malignant neoplasm of retroperitoneum and peritoneum; E87.2 Acidosis; D68.9 Coagulation defect, unspecified; D72.829 Elevated white blood cell count, unspecified; E11.22 Type 2 diabetes mellitus with diabetic chronic kidney disease; E11.40 Type 2 diabetes mellitus with diabetic neuropathy, unspecified; E11.65 Type 2 diabetes mellitus with hyperglycemia; E78.5 Hyperlipidemia, unspecified; F41.9 Anxiety disorder, unspecified; I12.9 Hypertensive chronic kidney disease with stage 1 through stage 4 chronic kidney disease, or unspecified chronic kidney disease; K21.9 Gastro-esophageal reflux disease without esophagitis; N18.9 Chronic kidney disease, unspecified; S09.90XA Unspecified injury of head, initial encounter; M19.90 Unspecified osteoarthritis, unspecified site; T45.515A Adverse effect of anticoagulants, initial encounter; Z79.01 Long term (current) use of anticoagulants; Z79.84 Long term (current) use of oral hypoglycemic drugs; Z80.0 Family history of malignant neoplasm of digestive organs; Z83.3 Family history of diabetes mellitus; Z85.028 Personal history of other malignant neoplasm of stomach; Z85.828 Personal history of other malignant neoplasm of skin; Z86.718 Personal history of other venous thrombosis and embolism; Z87.891 Personal history of nicotine dependence; Z92.21 Personal history of antineoplastic chemotherapy; W18.39XA Other fall on same level, initial encounter; Y93.89 Activity, other specified; Y92.89 Other specified places as the place of occurrence of the external cause; Y99.8 Other external cause status; R56.9 Unspecified convulsions
CPT/HCPCS: 36415; 36600; 71045; 74018; 80048; 80053; 82805; 82962; 85007; 85025; 85027; 85610; 86850; 86900; 86901; 86920; 86927; 94003; 94640; C9113; J1815; J2060; J2250; J2270; J2543; J3430; J7050; P9016; P9017; G0378; J7030